=== PATIENT | male | born 1935 | race Caucasian/White ===

== ENCOUNTER 2017-11-19 13:55 | Inpatient (IN) | payer MEDICARE, BC ==
[~2017-11-19] VITALS: Ht 180.3 cm; Wt 66.8 kg
--- NOTE | ~2017-11-19 | PN ---
PATIENT:LYNN CM MEDICAL RECORD: [id number] LOCATION:[facility] ADMISSION DATE: 11/19/17 PROGRESS NOTE DATE OF SERVICE: 11/22/2017 SUBJECTIVE: The patient's case was discussed with staff. He has no new complaint. OBJECTIVE: The patient is oriented to person and place only. His mood is flat. His affect is constricted. Thought processes are circumstantial. Memory, concentration, and abstraction abilities are mildly impaired and he is denying any intent to harm himself or others. ASSESSMENT: No change in diagnoses. PLAN: Current medicines have been reviewed. I am going to discontinue the p.r.n. Xanax. Overall, he is significantly better today. TRANSINT:[id number] Voice Confirmation ID: [id number] DOCUMENT ID: [id number] GRACE FATIMA MD at 1118 CC: [id number] DICTATION DATE: 11/22/17 1149 HOME SCHOOL TEACHER: 11/22/17 1342 ADM IN [place] [id number] [place] [id number]
--- NOTE | ~2017-11-19 | PN ---
PATIENT:LYNN CM MEDICAL RECORD: [id number] LOCATION:[facility] ADMISSION DATE: 11/19/17 PROGRESS NOTE DATE OF SERVICE: 11/30/2017 SUBJECTIVE: The patient's case was discussed with staff. He has no new complaint. OBJECTIVE: The patient has intermittent behaviors and is agitated at those times. There does not seem to be a pattern tying the agitated behavior to a low O2 concentration. His oxygen saturation was 96 earlier this morning when he was angry. There have been times when he has been confused and angry and it has been abnormally low. ASSESSMENT: No change in diagnoses. PLAN: The patient is not showing any significant improvement. He continues to be irritable. I am going to give the current medicines that he is on another day or two to see if they will have any beneficial effect. I am concerned about aggressively increasing the medicines and overmedicating him. TRANSINT:[id number] Voice Confirmation ID: [id number] DOCUMENT ID: [id number] GRACE FATIMA MD at 1059 CC: [id number] DICTATION DATE: 11/30/17 1053 MOUNT LOADER: 11/30/17 [address] [facility] [address] [place] [address]
--- NOTE | ~2017-11-19 | PN ---
PATIENT:LYNN CM MEDICAL RECORD: [id number] LOCATION:[facility] ADMISSION DATE: 11/19/17 PROGRESS NOTE DATE OF SERVICE: 11/21/2017 SUBJECTIVE: The patient's case was discussed with staff. He has no new complaint. OBJECTIVE: The patient is oriented to person only. He denies intent to harm himself or others. He has been more pleasant than he has previously been. ASSESSMENT: No change in diagnoses. PLAN: The patient takes Celexa for its antidepressant effect. I am not sure he needs an antidepressant, but I do not think the risk, benefit profile for Celexa is in his best interest and I am going to discontinue it. His long-term prognosis is guarded. He will be monitored for clinical changes associated with discontinuing the medicine. TRANSINT:[id number] Voice Confirmation ID: [id number] DOCUMENT ID: [id number] GRACE FATIMA MD at 1129 CC: [id number] DICTATION DATE: 11/21/17 1419 REPORTING ANALYST: 11/21/17 1425 ADM IN [facility] [address] [place] [address]
--- NOTE | ~2017-11-19 | PN ---
PATIENT:LYNN CM MEDICAL RECORD: [id number] LOCATION:[facility] ADMISSION DATE: 11/19/17 PROGRESS NOTE DATE OF SERVICE: 11/25/2017 SUBJECTIVE: The patient's case was discussed with staff. He has no new complaint. OBJECTIVE: The patient exhibits a fair amount of sundowning behavior where he will become often quite emotionally labile and will even begin crying. He is denying that he is depressed, but individually he will endorse a lot of neurovegetative depressive symptoms. ASSESSMENT: No change in diagnoses. PLAN: The patient has been taking Effexor for its antidepressant effect. The dose will be increased today. His long-term prognosis is guarded. The plan will be for him to return to the [facility] in [place] when his treatment here is completed. TRANSINT:[id number] Voice Confirmation ID: [id number] DOCUMENT ID: [id number] GRACE FATIMA MD at 1301 CC: [id number] DICTATION DATE: 11/25/17 1445 CILNICAL SCIENTIST: 11/25/17 1508 ADM IN [place] [address] [place] [address]
--- NOTE | ~2017-11-19 | PN ---
PATIENT:LYNN CM MEDICAL RECORD: [id number] LOCATION:[facility] ADMISSION DATE: 11/19/17 PROGRESS NOTE DATE OF SERVICE: 12/04/2017 SUBJECTIVE: The patient's case was discussed with staff. He has no new complaint. OBJECTIVE: The patient has not been aggressive today. He was p.r.n.'d yesterday and still seems a little bit sedated from that. ASSESSMENT: No change in diagnoses. PLAN: I am going to continue the patient's scheduled medicines and I am hopeful that they have had an opportunity to build up a little. If his behaviors are good over the next few days and he does not require p.r.n. medicines, I will consider sending him back to the long term in [place]. TRANSINT:[id number] Voice Confirmation ID: [id number] DOCUMENT ID: [id number] GRCAE FATIMA MD at 1222 CC: [id number] DICTATION DATE: 12/04/17 1248 MANUFACTURING PROJECT ENGINEER: 12/04/17 1254 DIS IN 12/05/17 [facility] [address] [place] [address]
--- NOTE | ~2017-11-19 | PN ---
PATIENT:LYNN CM MEDICAL RECORD: [id number] LOCATION:[facility] ADMISSION DATE: 11/19/17 PROGRESS NOTE DATE OF SERVICE: 11/23/2017 SUBJECTIVE: The patient's case was discussed with staff. He has no new complaint. OBJECTIVE: The patient is in good behavioral control with limited insight about his condition. He generally tolerates his medicines well. ASSESSMENT: No change in diagnoses. PLAN: Brief supportive and educational interventions were made. Long-term prognosis is guarded. TRANSINT:[id number] Voice Confirmation ID: [id number] DOCUMENT ID: [id number] GRACE FATIMA MD at 1459 CC: [id number] DICTATION DATE: 11/23/17 1139 BINDER STRIPPER HAND: 11/23/17 1619 ADM IN [place] [id number] [place] [address]
--- NOTE | ~2017-11-19 | PN ---
PATIENT:LYNN CM MEDICAL RECORD: [id number] LOCATION:[facility] ADMISSION DATE: 11/19/17 PROGRESS NOTE DATE OF SERVICE: 12/01/2017 SUBJECTIVE: The patient's case was discussed with staff. He has no new complaint. OBJECTIVE: The patient denies intent to harm himself or others. He has been somewhat irritable at times. ASSESSMENT: No change in diagnoses. PLAN: Supportive and educational interventions were made. Long-term prognosis is guarded. TRANSINT:[id number] Voice Confirmation ID: [id number] DOCUMENT ID: [id number] GRACE FATIMA MD at 1406 CC: [id number] DICTATION DATE: 12/01/17 1118 METALLURGICAL INSPECTOR: 12/01/17 1312 ADM IN [place] [address] [place] [address]
--- NOTE | ~2017-11-19 | DS ---
PATIENT:LYNN CM :37 MEDICAL RECORD: [id number] DISCHARGE SUMMARY ADMISSION DATE: 11/19/17 DISCHARGE DATE: 12/05/17 IDENTIFYING DATA: The patient is 82 years old and he was admitted to the hospital on a voluntary basis. The patient lives in a fpc in [place], [place], and had recently become agitated and disruptive. He had been yelling and turned over a table and they felt he was unmanageable. The staff there had tried various pharmacologic and nonpharmacologic interventions with little or no success. The patient is severely impaired cognitively. HOSPITAL COURSE: The patient was actually known to me from previous hospitalizations at another hospital. He has an advanced dementia and he was treated with memory enhancing and mood stabilizing medications with some success. It is unrealistic to think that he will never have a behavior outburst, but on the whole he was significantly better. He was then subsequently transitioned back to the fpc and at that time was not felt to be an acute danger to himself or others. DISCHARGE DIAGNOSES: AXIS I: Senile dementia of the Alzheimer's type with behavioral disturbances. AXIS II: None. AXIS III: Coronary artery disease and chronic obstructive pulmonary disease. AXIS IV: Moderate stressors. AXIS V: Global assessment of functioning is 35. PLAN: At the time of discharge, the patient was in good behavioral control with limited insight about his condition. He was tolerating his medicines well. His long-term prognosis is guarded and followup is to be with his primary care fpc physician. TRANSINT:[id number] Voice Confirmation ID: [id number] DOCUMENT ID: [id number] GRACE FATIMA MD at 1213 CC: [id number] DICTATION DATE: 12/12/17 1439 COLLECTION MANAGER: 12/12/17 1452 DIS IN 12/05/17 [place] [id number] [place] [address]
--- NOTE | ~2017-11-19 | PN ---
PATIENT:LYNN CM MEDICAL RECORD: [id number] LOCATION:[facility] ADMISSION DATE: 11/19/17 PROGRESS NOTE DATE OF SERVICE: 12/03/2017 SUBJECTIVE: The patient's case was discussed with staff. He has no new complaint. OBJECTIVE: The patient is in good behavioral control with limited insight about his condition. He continues to be angry and verbally abusive to the staff. ASSESSMENT: No change in diagnoses. PLAN: Current medicines and therapies have been reviewed, both will be maintained. He was started on Geodon yesterday, and I do not think it has had an opportunity to become fully effective. TRANSINT:[id number] Voice Confirmation ID: [id number] DOCUMENT ID: [id number] GRACE FATIMA MD at 1234 CC: [id number] DICTATION DATE: 12/03/17 1356 COKE OVEN MASON: 12/03/17 1413 ADM IN [place] [id number] [place] [id number]
--- NOTE | ~2017-11-19 | PN ---
PATIENT:LYNN CM MEDICAL RECORD: [id number] LOCATION:[facility] ADMISSION DATE: 11/19/17 PROGRESS NOTE DATE OF SERVICE: 11/29/2017 SUBJECTIVE: The patient's case was discussed with staff. He has no new complaint. OBJECTIVE: The patient has been quite agitated and received p.r.n. medication today. He seems more confused. He has been stripping his clothing off. ASSESSMENT: No change in diagnoses. PLAN: Supportive and educational interventions were made. The patient's medicines have been reviewed. I strongly suspect he has developed a urinary tract infection. Pending the outcome of that I am going to not add additional medicines to his regimen since the change in his behavior could easily be explained by the infection that I suspect. TRANSINT:[id number] Voice Confirmation ID: [id number] DOCUMENT ID: [id number] GRACE FATIMA MD at 1045 CC: [id number] DICTATION DATE: 11/29/17 1237 CLINICAL BUSINESS MANAGER: 11/29/17 1253 ADM IN [place] [id number] [place] [address]
--- NOTE | ~2017-11-19 | PN ---
PATIENT:LYNN CM MEDICAL RECORD: [id number] LOCATION:[facility] ADMISSION DATE: 11/19/17 PROGRESS NOTE DATE OF SERVICE: 12/02/2017 SUBJECTIVE: The patient's case was discussed with staff. He has no new complaint. OBJECTIVE: The patient denies intent to harm himself or others. He generally tolerates his medicines well. Eye contact is fair. ASSESSMENT: No change in diagnoses. PLAN: Supportive and educational interventions were made. Long-term prognosis is guarded. I am going to discontinue his Seroquel and will start him on Geodon on a scheduled basis. He is requiring almost daily doses of p.r.n. Haldol and Ativan because of his behavior. TRANSINT:[id number] Voice Confirmation ID: [id number] DOCUMENT ID: [id number] GRACE FATIMA MD at 1339 CC: [id number] DICTATION DATE: 12/02/17 1414 SYSTEMS INTEGRATION ENGINEER: 12/02/17 1422 ADM IN [place] [id number] [place] [id number]
--- NOTE | ~2017-11-19 | PN ---
PATIENT:LYNN CM MEDICAL RECORD: [id number] LOCATION:[facility] ADMISSION DATE: 11/19/17 PROGRESS NOTE DATE OF SERVICE: 11/24/2017 SUBJECTIVE: The patient's case was discussed with staff. He has no new complaint. OBJECTIVE: The patient has been fairly angry and irritable in a way that is problematic, but it has not escalated to the point where he has required p.r.n. medication for the past 24 hours. ASSESSMENT: No change in diagnoses. PLAN: The patient will be maintained on current medicines, but I am going to increase the dose of the Seroquel slightly. I am going to give him 12.5 mg of the medication at morning along with his 50 mg at bedtime. Hopefully, this will help him through the day to not be quite as irritable. I do not think that the irritability is otherwise going to improve and I think that it could easily escalate into something much more significant than what we are seeing at the halfway since nursing homes are not staffed anywhere close to as rigidly we are and the staff here have specialized behavioral health training. TRANSINT:[id number] Voice Confirmation ID: [id number] DOCUMENT ID: [id number] GRACE FATIMA MD at 1434 CC: [id number] DICTATION DATE: 11/24/17 1519 STEAMER BLOCKER: 11/24/17 1533 ADM IN [facility] [address] [place] [address]
--- NOTE | ~2017-11-19 | PN ---
PATIENT:LYNN CM MEDICAL RECORD: [id number] LOCATION:[facility] ADMISSION DATE: 11/19/17 PROGRESS NOTE DATE OF SERVICE: 11/28/2017 SUBJECTIVE: The patient's case was discussed with staff. He has no new complaint. OBJECTIVE: The patient is in good behavioral control with limited insight about his condition. He does tolerate his medicines well. ASSESSMENT: No change in diagnoses. PLAN: Supportive and educational interventions were made. Long-term prognosis is guarded. I anticipate he can be transitioned out of the hospital soon if this level of improvement is maintained. TRANSINT:[id number] Voice Confirmation ID: [id number] DOCUMENT ID: [id number] GRACE FATIMA MD at 1223 CC: [id number] DICTATION DATE: 11/28/17 1339 FLOATING OPERATOR: 11/28/17 1343 ADM IN [facility] [address] [place] [address]
--- NOTE | ~2017-11-19 | PN ---
PATIENT:LYNN CM MEDICAL RECORD: [id number] LOCATION:[facility] ADMISSION DATE: 11/19/17 PROGRESS NOTE DATE OF SERVICE: 11/26/2017 SUBJECTIVE: The patient's case was discussed with staff. He has no new complaint. OBJECTIVE: The patient is poorly oriented. He did require some p.r.n. Ativan last night for some agitation. He is sleeping a little bit better. He continues to have episodes where he becomes quite upset and angry, sometimes saying he wants to kill himself. ASSESSMENT: No change in diagnoses. PLAN: The patient's current medicines have been reviewed. I am going to start him on a low dose of Klonopin to assist with his underlying anxiety. He will be monitored for clinical changes associated with its use. His long-term prognosis is guarded. TRANSINT:[id number] Voice Confirmation ID: [id number] DOCUMENT ID: [id number] GRACE FATIMA MD at 1052 CC: [id number] DICTATION DATE: 11/26/17 1414 REAL ESTATE ACQUISITION ANALYST: 11/26/17 1421 ADM IN [facility] [address] [place] [address]
--- NOTE | ~2017-11-19 | PSY ---
PATIENT NAME:LYNN CM MEDICAL RECORD: [id number] : 37 LOCATION:[facility] ADMISSION DATE: 11/19/17 ACCOUNT: [id number] PSYCHIATRIC EVALUATION DATE OF EVALUATION: 11/20/17 IDENTIFYING DATA: The patient is 82 years old, and he was admitted to the hospital on a voluntary basis. CHIEF COMPLAINT: Agitation. HISTORY OF PRESENT ILLNESS: The patient lives in the [facility] in [place], [place]. He has recently become agitated and disruptive. He has been yelling. He turned over a table. He is unmanageable. The staff there have tried various pharmacologic and nonpharmacologic interventions with little or no success. The patient is severely impaired cognitively and has no understanding of what he has done. PAST MEDICAL HISTORY: Significant for coronary artery disease and bypass grafting. He also has a history of COPD. PAST PSYCHIATRIC HISTORY: Significant for an established diagnosis of dementia and a previous hospitalization for behavior problems associated with the dementia. FAMILY HISTORY: Unknown. ALLERGIES: No known drug allergies. CURRENT MEDICATIONS: Include Ultram, Xanax, Seroquel, Lipitor, potassium, Celexa, Protonix, Coreg, Namenda, Effexor, Lasix, and [place]. SOCIAL HISTORY: The patient has never . He has no children. 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 He now lives in a detention. He has smoked and has continued to smoke up to until this hospitalization since he was a teenager. He does not have a history of alcohol abuse. MENTAL STATUS EXAMINATION: The patient is awake, alert, and oriented to person only. His mood is anxious. His affect is constricted. Thought processes are circumstantial. Memory, concentration, and abstraction abilities are moderately impaired, and he denies any active intent to harm himself or others as well as overt psychotic symptoms. ASSETS: Supportive family members. LIABILITIES: Limited insight. DIAGNOSTIC IMPRESSION: AXIS I: Senile dementia of the Alzheimer's type with behavioral disturbances. AXIS II: None. AXIS III: Coronary artery disease and chronic obstructive pulmonary disease. AXIS IV: Moderate stressors. AXIS V: Global assessment of functioning is 30. PLAN: At the time of admission, the patient is agitated and confused. He will be treated with both memory enhancing and mood stabilizing medications. His long-term prognosis is guarded. I anticipate he can return to the detention once adequately treated, and I would estimate his length of stay to be 10 days. TRANSINT:[id number] Voice Confirmation ID: [id number] DOCUMENT ID: [id number] GRACE FATIMA MD at 1350 CC: [id number] DICTATION DATE: 11/20/17 1349 ENTERPRISE INTEGRATION ARCHITECT: 11/20/17 1409 ADM IN [place] [id number] [place] [id number]
--- NOTE | ~2017-11-19 | PN ---
PATIENT:LYNN CM MEDICAL RECORD: [id number] LOCATION:[facility] ADMISSION DATE: 11/19/17 PROGRESS NOTE DATE OF SERVICE: 11/27/2017 SUBJECTIVE: The patient's case was discussed with staff. He has no new complaint. OBJECTIVE: The patient is in good behavioral control. He has limited insight about his condition. He generally tolerates his medicines well. The episodes of agitation do appear to be related to oxygen desaturation. He has no thoughts of harming himself today. ASSESSMENT: No change in diagnoses. PLAN: Brief supportive and educational interventions were made. Long-term prognosis is guarded. TRANSINT:[id number] Voice Confirmation ID: [id number] DOCUMENT ID: [id number] GRACE FATIMA MD at 1322 CC: [id number] DICTATION DATE: 11/27/17 1159 RATTAN WORKER: 11/27/17 1206 ADM IN [place] [id number] [place] [address]
[2017-11-19 15:55] VITALS: BP 100/58
[2017-11-19] MEDS ORDERED: XANAX0.25 MG PO (16:37)
[2017-11-19] MEDS ORDERED: CELEXA20 MG PO (16:39)
[2017-11-19] MEDS ORDERED: LIPITOR40 MG PO (16:39)
[2017-11-19] MEDS ORDERED: COREG 3.1253.125 MG PO (16:40)
[2017-11-19] MEDS ORDERED: EFFEXOR50 MG PO (16:40)
[2017-11-19] MEDS ORDERED: FUROSEMIDE20 MG PO (16:41)
[2017-11-19] MEDS ORDERED: NAMENDA5 MG PO (16:41)
[2017-11-19] MEDS ORDERED: HYDROCODON-ACE1 EAC7 PO (16:41)
[2017-11-19] MEDS ORDERED: PROTONIX40 MG PO (16:42)
[2017-11-19] MEDS ORDERED: K-TAB10 MEQ PO (16:42)
[2017-11-19 16:43] VITALS: BP 100/58
[2017-11-19] MEDS ORDERED: SEROQUEL25 MG PO (16:43)
[2017-11-19] MEDS ORDERED: ULTRAM50 MG PO (16:44)
[2017-11-19 20:55] VITALS: BP 115/74
[2017-11-20 08:27] LABS: BASOPHILS 0.4 % (0-2); EOSINOPHILS 7.4 % (0-7); HEMATOCRIT 33.4 % (42.0-54.0); HEMOGLOBIN 10.6 g/dL (13.5-17.5); IMMATURE GRANULOCYTES 0.4 % (0-5); LYMPHOCYTES 22.5 % (15-50); MCH 28.3 pg (26.0-34.0); MCHC 31.7 g/dL (31.0-37.0); MCV 89.1 fL (80.0-100.0); MEAN PLATELET VOLUME 8.8 fL (7.4-10.4); MONOCYTES 8.5 % (2-11); NEUTROPHILS 60.8 % (40-80); PLATELET COUNT 182 10x3/uL (130-400); RBC 3.75 10x6/uL (4.20-6.10); RDW 14.4 % (11.5-14.5); WBC 5.6 10x3/uL (4.8-10.8)
[2017-11-20 08:52] LABS: ALBUMIN 3.1 g/dL (3.4-5.0); ANION GAP 8.9 mmol/L (8-16); BILIRUBIN - TOTAL 0.26 mg/dL (0.2-1.3); CALCIUM 8.8 mg/dL (8.5-10.1); CARBON DIOXIDE 30.2 mmol/L (21.0-32.0); CHOL - HDL RATIO 3.6 ratio (2.3-4.9); CREATININE - SERUM 1.4 mg/dL (0.6-1.3); POTASSIUM - SERUM 4.1 mmol/L (3.5-5.1); PROTEIN - SERUM 8.2 g/dL (6.4-8.2); THYROID STIMULATING HORMONE 3.41 uIU/mL (0.36-3.74)
[2017-11-20 09:36] VITALS: Ht 180.3 cm; Wt 66.8 kg
[2017-11-20 11:03] VITALS: BP 120/56; BP 120/66
[2017-11-20 20:05] VITALS: BP 112/58
[2017-11-21 05:15] LABS: VITAMIN D 25 HYDROXY 10.7 ng/mL (30.0-100.0)
[2017-11-21 07:33] LABS: RAPID PLASMA REAGIN Non Reactive (Non Reactive)
[2017-11-21 09:20] LABS: FOLATE (FOLIC ACID) - SERUM 7.1 ng/mL (>3.0)
[2017-11-21 10:31] VITALS: BP 114/61
[2017-11-21 20:35] VITALS: BP 107/65
[2017-11-22 09:37] VITALS: BP 115/63
[2017-11-22 13:11] LABS: APPEARANCE CLEAR (CLEAR); COLOR YELLOW (YELLOW)
[2017-11-22 13:12] LABS: AMORPHOUS SEDIMENT >1+ /lpf (NONE SEEN); BACTERIA MANY /hpf (NONE SEEN); BILIRUBIN NEGATIVE (NEGATIVE); EPITHELIAL CELLS 0-5 /hpf (0-5); GLUCOSE NEGATIVE (NEGATIVE); KETONE NEGATIVE (NEGATIVE); MUCUS <1+ /lpf (NONE SEEN); NITRITE NEGATIVE (NEGATIVE); PROTEIN NEGATIVE (NEGATIVE); RED CELLS - URINE OCC /hpf (0-5); SPECIFIC GRAVITY 1.015 (1.005-1.020); UROBILINOGEN NORMAL (NORMAL)
[2017-11-22 19:21] VITALS: BP 118/60
[2017-11-23 08:00] VITALS: BP 105/55
[2017-11-23 17:11] VITALS: BP 118/62
[2017-11-23 19:25] VITALS: BP 104/55
[2017-11-24 08:15] VITALS: BP 100/54
[2017-11-24 16:24] VITALS: BP 115/66
[2017-11-24 19:34] VITALS: BP 103/58
[2017-11-25 07:55] VITALS: BP 113/68
[2017-11-25 21:57] VITALS: BP 108/60
[2017-11-26 01:53] LABS: APPEARANCE CLOUDY (CLEAR); COLOR YELLOW (YELLOW)
[2017-11-26 01:54] LABS: BILIRUBIN NEGATIVE (NEGATIVE); GLUCOSE NEGATIVE (NEGATIVE); KETONE NEGATIVE (NEGATIVE); NITRITE POSITIVE (NEGATIVE); PROTEIN 1+ mg/dL (NEGATIVE); SPECIFIC GRAVITY 1.005 (1.005-1.020); UROBILINOGEN NORMAL (NORMAL)
[2017-11-26 01:55] LABS: BACTERIA MANY /hpf (NONE SEEN); EPITHELIAL CELLS 0-5 /hpf (0-5)
[2017-11-26 09:00] VITALS: BP 132/68
[2017-11-26 19:06] VITALS: BP 125/65
[2017-11-27 10:35] VITALS: BP 118/68
[2017-11-27 22:38] VITALS: BP 134/70
[2017-11-28 10:25] VITALS: BP 100/60
[2017-11-28 21:17] VITALS: BP 121/55
[2017-11-29 10:01] VITALS: BP 126/65
[2017-11-29 10:13] VITALS: BP 126/65
[2017-11-29 21:12] VITALS: BP 150/59
[2017-11-30 09:29] VITALS: BP 117/59
[2017-11-30 19:27] VITALS: BP 130/72
[2017-12-01 08:00] VITALS: BP 93/34
[2017-12-01 19:17] VITALS: BP 113/78
[2017-12-02 08:00] VITALS: BP 119/80
[2017-12-02 20:15] VITALS: BP 142/76
[2017-12-03 08:00] VITALS: BP 133/77
[2017-12-03 10:53] VITALS: BP 159/72
[2017-12-03 19:53] VITALS: BP 142/80
[2017-12-04 11:17] VITALS: BP 100/57
[2017-12-04 22:29] VITALS: BP 130/80
[2017-12-05] MEDS ORDERED: IPRAT-ALBUT 0.5-3 ML INH (09:49)
[2017-12-05] MEDS ORDERED: ASPIRIN81 MG PO (09:50)
[2017-12-05] MEDS ORDERED: EFFEXOR37.5 MG PO (09:50)
[2017-12-05] MEDS ORDERED: GEODON20 MG PO (09:51)
[2017-12-05] MEDS ORDERED: KLONOPIN0.5 MG PO (09:51)
[2017-12-05] MEDS ORDERED: FLORAJEN3 CAPS460 MG PO (09:52)
[2017-12-05] MEDS ORDERED: SENOKOT-S TABLE1 TAB PO (09:52)
[2017-12-05] MEDS ORDERED: LIDODERM 5 %1 PATCH TRANSDERM (09:52)
[2017-12-05 11:19] VITALS: BP 127/72
== END 2017-12-05 09:55 | DRG 57 ==
LOC: D.PSYCH 13:55
PROVIDERS: Family Medicine; Psychiatry & Neurology Psychiatry
DX: G30.1 Alzheimer's disease with late onset (principal); F02.81 Dementia in other diseases classified elsewhere, unspecified severity, with behavioral disturbance; N39.0 Urinary tract infection, site not specified; I25.10 Atherosclerotic heart disease of native coronary artery without angina pectoris; J44.9 Chronic obstructive pulmonary disease, unspecified; I10 Essential (primary) hypertension; Z74.09 Other reduced mobility; F41.8 Other specified anxiety disorders; E78.5 Hyperlipidemia, unspecified; K21.9 Gastro-esophageal reflux disease without esophagitis; B96.4 Proteus (mirabilis) (morganii) as the cause of diseases classified elsewhere

== ENCOUNTER 2019-06-01 20:56 | Inpatient (IN) | payer MEDICARE, BC ==
[~2019-06-01] VITALS: Ht 180.3 cm; Wt 56.1 kg
[~2019-06-01 20:56] MED LIST: ASPIRIN81 MG PO; CELEXA20 MG PO; COREG 3.1253.125 MG PO; EFFEXOR37.5 MG PO; EFFEXOR50 MG PO; FLORAJEN3 CAPS460 MG PO; FUROSEMIDE20 MG PO; GEODON20 MG PO; HYDROCODON-ACE1 EAC7 PO; IPRAT-ALBUT 0.5-3 ML INH; K-TAB10 MEQ PO; KLONOPIN0.5 MG PO; LIDODERM 5 %1 PATCH TRANSDERM; LIPITOR40 MG PO; NAMENDA5 MG PO; PROTONIX40 MG PO; SENOKOT-S TABLE1 TAB PO; SEROQUEL25 MG PO; ULTRAM50 MG PO; XANAX0.25 MG PO
--- NOTE | 2019-06-01 21:10 | NUR ---
PT ARRIVED TO UNIT VIA EMS. HE IS YELLING OUT BUT IS COOPERATIVE WITH STAFF. HE IS VERY CONFUSED STATING HE WANTS TO TALK TO A DR. STATES "JUSTIN BEEN BITTEN BY DOGS AND AM BLEEDING OUT" CHECKED ALL OVER FOR BITE JAMES. NONE FOUND REDIRECTED. HE IS A FULL CODE AND HIS CODE WORD IS 6347. HE IS UNABLE TO AMBULATE. HE HAS B/L HEEL PADS. WILL CONTINUE TO MONITOR.
--- NOTE | 2019-06-01 21:30 | NUR ---
VERBAL CONSENT FROM DAUGHTER/POA MARISA KIRBY. VERIFIED WITH JENNIFER LYONS RN.
[2019-06-01] MEDS ORDERED: FLORANEX / LACT1 TAB PO (21:53)
[2019-06-01] MEDS ORDERED: BAYER CHEWABLE81 MG PO (21:54)
[2019-06-01] MEDS ORDERED: LIPITOR40 MG PO (21:57)
[2019-06-01] MEDS ORDERED: KLONOPIN0.5 MG PO (22:58)
[2019-06-01] MEDS ORDERED: FOLIC ACID1 MG PO (22:59)
[2019-06-01] MEDS ORDERED: FERROUS SULFAT325 MG PO (22:59)
[2019-06-01] MEDS ORDERED: MELATONIN 3 MG1 TAB PO (23:00)
[2019-06-01] MEDS ORDERED: POTASSIUM CHLOR8 ME1 PO (23:01)
[2019-06-01] MEDS ORDERED: NAMENDA10 MG PO (23:02)
[2019-06-01] MEDS ORDERED: MULTI-DAY VITAM1 TAB PO (23:02)
[2019-06-01] MEDS ORDERED: FAMOTIDINE10 MG PO (23:03)
[2019-06-01] MEDS ORDERED: VITAMIN B-12500 MCG PO (23:04)
[2019-06-01] MEDS ORDERED: ASCORBIC ACID500 MG PO (23:04)
[2019-06-01] MEDS ORDERED: COREG 3.1253.125 MG PO (23:09)
[2019-06-01] MEDS ORDERED: VITAMIN D10000 UNI1 PO (23:09)
[2019-06-01] MEDS ORDERED: SENNA LAXATIVE8.6 MG PO (23:11)
[2019-06-01] MEDS ORDERED: NORCO-7.51 TAB PO (23:12)
[2019-06-01] MEDS ORDERED: MIDODRINE HCL10 MG PO (23:13)
[2019-06-01] MEDS ORDERED: IMODIUM2 MG PO (23:14)
[2019-06-01] MEDS ORDERED: ULTRAM50 MG PO (23:15)
[2019-06-01] MEDS ORDERED: ACETAMINOPHEN325 MG PO (23:16)
[2019-06-01] MEDS ORDERED: ZOFRAN8 MG PO (23:17)
[2019-06-02 00:56] VITALS: BP 122/78
[2019-06-02 07:00] VITALS: BP 122/78; BMI 17.8
[2019-06-02 08:52] LABS: BASOPHILS 0.3 % (0-2); EOSINOPHILS 2.3 % (0-7); HEMATOCRIT 28.5 % (42.0-54.0); HEMOGLOBIN 8.5 g/dL (13.5-17.5); IMMATURE GRANULOCYTES 0.2 % (0-5); LYMPHOCYTES 23.5 % (15-50); MCHC 29.8 g/dL (31.0-37.0); MCV 90.5 fL (80.0-100.0); MEAN PLATELET VOLUME 9.8 fL (7.4-10.4); MONOCYTES 8.9 % (2-11); NEUTROPHILS 64.8 % (40-80); RBC 3.15 10x6/uL (4.20-6.10); RDW 15.1 % (11.5-14.5); WBC 5.7 10x3/uL (4.8-10.8)
[2019-06-02 09:25] LABS: PLATELET COUNT 325 10x3/uL (130-400)
[2019-06-02 09:27] LABS: ALBUMIN 2.5 g/dL (3.4-5.0); ALKALINE PHOSPHATASE 54 U/L (30-120); ALT (SGPT) 24 U/L (10-68); BILIRUBIN - TOTAL 0.26 mg/dL (0.2-1.3); CALC OSMOLALITY 278 mosm/kg (275-300); CALCIUM 8.8 mg/dL (8.5-10.1); CARBON DIOXIDE 29.4 mmol/L (21.0-32.0); CHLORIDE - SERUM 102 mmol/L (98-107); GLUCOSE 114 mg/dL (74-106); HDL CHOLESTEROL 34 mg/dL (32-96); POTASSIUM - SERUM 4.1 mmol/L (3.5-5.1); SODIUM 137 mmol/L (136-145); THYROID STIMULATING HORMONE 2.97 uIU/mL (0.36-3.74); TRIGLYCERIDE 105 mg/dL (30-200); UREA NITROGEN 25 mg/dL (7-18); eGFR NON AFRICAN AMERICAN 76 mL/min (90-120)
[2019-06-02 09:55] LABS: CHOL - HDL RATIO 2.9 ratio (2.3-4.9); CHOLESTEROL, TOTAL 99 mg/dL (0-200); LDL CHOLESTEROL 44 mg/dL (0-100); LDL-HDL RATIO 1.3 ratio (1.5-3.5)
[2019-06-02 10:31] VITALS: Ht 180.3 cm; Wt 56.1 kg
[2019-06-02 10:33] VITALS: BP 100/58
--- NOTE | 2019-06-02 12:39 | NUR ---
RECEIVED IN HALLWAY OUTSIDE OF NURSES STATION. CALM AND COOPERATIVE WITH CARE AND ASSESSMENT. YELLING OUT AT TIMES. DEMANDING TO LEAVE AT TIMES. REDIRECT AND REORIENT NEEDED. EATING LUNCH AT THIS TIME. CONTINUE PLAN OF CARE.
--- NOTE | 2019-06-02 13:00 | NUR ---
PATIENT SEXUALLY INAPPROPRIATE WITH STAFF. MAKING INAPPROPRIATE COMMENTS AND GRABBING STAFF INAPPROPRIATELY. REDIRECTED.
--- NOTE | 2019-06-02 14:20 | NUR ---
YELLING OUT,DEMANDING.WILL NOT REDIRECT.HALDOL 2MG AND ATIVAN 0.5MG IM TO RT LATERAL THIGH.
--- NOTE | 2019-06-02 14:50 | NUR ---
GOOD RESPONSE TO ATIVAN AND HALDOL.EYES CLOSED,RESP REGULAR AND EVEN.
--- NOTE | 2019-06-02 16:22 | NUR ---
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 The wound bed is red, bone can be tapped and muscle noted. Wound edges are rolled. There is no odor noted - there is a moderate serous drainage. There is a stage 3 pressure injury on right hip measuring 1cm x 1cm. The wound bed is yellow/slough. Small amount of serous drainage is noted with no odor. Recommended: wet to dry dressing using saline to coccyx (changing daily) -mepilex border dressing to right hip -air overlay mattress -turn/reposition q 2 hours while in bed q 1 hour repositioning while up in chair Wound care will monitor.
--- NOTE | 2019-06-02 19:30 | NUR ---
DRESSING CHANGE COMPLETE ON STAGE 4 COCCYX PRESSURE ULCER PER INSTRUCTIONS. PT TOLERATED WELL.
[2019-06-02 21:00] VITALS: BP 102/57
--- NOTE | 2019-06-02 21:01 | NUR ---
B.) PT IS ALERT AND ORIENTED TO SELF ONLY. HE IS UNABLE TO AMBULATE OR MAKE HIS NEEDS KNOWN. HE IS SEXUALLY INAPPROPRIATELY GROPING STAFF, RECITING RACIAL SLURRS, AND YELLING OUT. HE IS ON 2L O2. I.) PROVIDED PM MEDICATONS. COLLECTED URINE SAMPLE. EKG. AND REDIRECT OFTEN. R.) COMPLIANT WITH ALL MEDICATIONS, UNABLE TO COLLECT URINE SAMPLE DUE TO ENLARGED PROSTATE. COMPLIANT WITH EKG. DIFFICULT TO REDIRECT. P.) WILL CONTINUE TO MONITOR.
--- NOTE | 2019-06-03 01:36 | NUR ---
PT YELLING OUT AND BEING SEXUALLY INAPPROPRIATE WITH FEMALE STAFF. PRN 0.5MG ATIVAN ADMINISTERED IM TO RIGHT VASTUS LATERALIS. WILL CONTINUE TO MONITOR.
--- NOTE | 2019-06-03 09:05 | NUR ---
RECEIVED IN HALLWAY OUTSIDE OF NURSES STATION. AGITATED AND UNCOOPERATIVE WITH CARE. AGGRESSIVE WITH STAFF. SEXUALLY INAPPROPRIATE. REDIRECT AND REORIENT NEEDED. EATING BREAKFAST AT THIS TIME. CONTINUE PLAN OF CARE.
--- NOTE | 2019-06-03 10:27 | NUR ---
Nutrition Follow-up: Diet: Regular + Ensure TID + Igor BID PO intake: 68% average x 3 meals Last BM: 06/03/19. WT: 127.8# (06/02/19) Meds noted: senokot. Labs reviewed. Skin: stage IV decub on coccyx Recommend continue current diet. Continue oral nutrition supplements. Encourage PO intake. RD following.
--- NOTE | 2019-06-03 11:36 | NUR ---
This nurse and other nurse bladder scanned patient. 157 ml noted in bladder. will cont to monitor.
--- NOTE | 2019-06-03 16:47 | HP ---
PATIENT: ADAIR MC MEDICAL RECORD: [id number] ACCOUNT: [id number] LOCATION:[facility] : 36 ADMISSION DATE: 06/01/19 PCP: LASHAE DHILLON MD HISTORY AND PHYSICAL EXAMINATION IDENTIFYING DATA: The patient is 84 years old and he is admitted to the hospital on a voluntary basis. CHIEF COMPLAINT: Confusion and agitation. HISTORY OF PRESENT ILLNESS: The patient is referred to us from a local [facility]ci. He told the nurse that the fci that he was going to get a gun and shoot himself, but when asked about this, he laughs and says that never happened. Apparently, he has been difficult to manage there. He has not been eating or drinking and refusing some medicines. He has also had some mood swings and some sexually inappropriate behavior. He is clearly very impaired cognitively. Unfortunately, he was sexually inappropriate with some of the nursing staff earlier today. PAST MEDICAL HISTORY: Significant for coronary artery disease with coronary artery bypass grafting. He has a history of hypertension and COPD. He has a history of acid reflux and anorexia. He has a history of osteoarthritis. PAST PSYCHIATRIC HISTORY: Significant for an established diagnosis of dementia and a hospitalization at this facility in October of 2017. At that time, he was under my care and was referred to us from a fci in [place], [place], where he had been agitated and disruptive. FAMILY HISTORY: Unknown. ALLERGIES: No known drug allergies. CURRENT MEDICATIONS: Include, aspirin, Effexor, Geodon, Klonopin. SOCIAL HISTORY: The patient is never . He has no children. 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 He now lives in a fci. He has smoked in the past and continued to smoke up until recently. He does not have a history of alcohol abuse. MENTAL STATUS EXAMINATION: The patient is awake, alert and oriented to person only. His mood is flat. His affect is constricted. Thought processes are disorganized. Memory, concentration, and abstraction abilities are severely impaired. He denies that he would seek to harm himself or others as well as psychotic symptoms. ASSETS: Supportive family members. LIABILITIES: Limited insight. DIAGNOSTIC IMPRESSION: AXIS I: Major neurocognitive disorder of the Alzheimer's type with behavioral disturbances. AXIS II: None. AXIS III: Coronary artery disease, chronic obstructive pulmonary disease, and HISTORY AND PHYSICAL [id number] ADAIR CM hypertension. AXIS IV: Moderate. AXIS V: Global assessment of functioning is 25. PLAN: At this time, the patient is admitted to the hospital for a comprehensive medical, psychological, and social evaluation. He will be treated with both mood stabilizing and memory enhancing medications. His long-term prognosis is guarded. TRANSINT:[id number] Voice Confirmation ID: [id number] DOCUMENT ID: [id number] GRACE FATIMA MD at 1647 CC: [id number] DICTATION DATE: 06/02/19 1554 FITTER UP: 06/02/19 1612 ADM IN [place] [id number] [place] [address]
--- NOTE | 2019-06-03 18:39 | NUR ---
PATIENT WAS RESTLESS, YELLING AT OTHER PTS, AGITATING OTHER MEN BY YELLING OBSCENES AT PTS. ATTEMPTED TO REDIRECT BEHAVIOR. SEVERAL STAFF MEMBERS UNABLE TO REDIRECT BEHAVIOR. ATIVAN 0.[address] FATIMA ORDER. PT TOELRATED WELL WHILE SCREAMING AT NURSE "I'LL KILL YOU NOW. YOU STICK ME AND I WILL KILL YOU." WILL REASSESS Q 1 HOUR FOR EFFECTIVENESS.
[2019-06-03 20:00] VITALS: BP 117/62
--- NOTE | 2019-06-03 20:43 | NUR ---
B.) PT IS ALERT AND ORIENTED TO SELF ONLY. HE HAS POOR INSIGHT INTO HIS SITUATION HE IS RECEIVED IN THE DAYROOM IN A GERICHAIR. HE IS YELLING OUT. HE IS UNABLE TO AMBULATE OR MAKE HIS NEEDS KNOWN. I.) PROVIDED PM MEDICATIONS PRESCRIBED. REDIRECT OFTEN. R.) COMPLIANT WITH ALL MEDICATIONS. DIFFICULT TO REDIRECT. P.) WILL CONTINUE TO MONITOR.
--- NOTE | 2019-06-04 09:10 | NUR ---
PATIENT SITTING IN CHAIR WITH EYES OPEN. YELLING OUT FOR "MONIE" ATTEMPTED TO REDIRECT PT. PT IS ALERT TO SELF ONLY CONFUSION NOTED. REDIRECT AND REORIENT IF NEEDED. PT HAS PRESSURE WOUNDS. BANDAGES CHANGED ON PREVIOUS SHIFT. PT IS COMPLIANT WITH MEDS, VITALS AND ASSESSMENTS. CHAIR ALARM IN PLACE AND ACTIVE. WILL CONT PLAN OF CARE.
[2019-06-04 10:32] VITALS: BP 104/56
[2019-06-04 10:45] LABS: RAPID PLASMA REAGIN Non Reactive (Non Reactive)
--- NOTE | 2019-06-04 12:03 | NUR ---
THIS NURSE CHANGED DRESSING TO COCCYX AREA. THIS NURSE AND TECH PUT LIFT SHEET UNDER PT TO ASSIST WITH REPOSITIONING. CHAIR ALARM IN PLACE AND ACTIVE.
--- NOTE | 2019-06-04 18:10 | NUR ---
PATIENT WAS SEXUALLY INAPPROPRIATE WITH A STAFF MEMBER. REDIRECTED AND MOVED.
[2019-06-04 20:00] VITALS: BP 122/66
--- NOTE | 2019-06-04 21:17 | NUR ---
B)RECEIVED PATIENT SITTING IN THE DAYROOM. RESTLESS AND TALKING TO SELF NON STOP. CONFUSED AND DISORIENTED. O2 AT 2L/MIN PER NC. DRESSINGS TO COCCYX AND RIGHT TROCHANTER INTACT. I)ADMINISTER MEDS AND MONITOR COMPLIANCE. REORIENT NEEDED. R)MED COMPLIANT. POOR REORIENTATION DUE TO IMPAIRED ABILITY TO COMPREHEND, PROCESS AND RETAIN INFORMATION. P)CONTINUE POC AND PROVIDE SAFE ENVIRONMENT.
[2019-06-05 10:30] VITALS: BP 111/68
--- NOTE | 2019-06-05 10:32 | NUR ---
The patient is awake and alert, he is confused. He remains sleepy. He awakened to eat and he awakened to yell out that he is cold and needed a blanket. He has poor insight into her situation. He knows his name. Provide prescribed meds. Provided his breakfast and a snack, and a blanket. He is compliant with meds. Continue POC.
--- NOTE | 2019-06-05 12:30 | NUR ---
THIS NURSE AND OTHER NURSE WERE PERFORMING PERICARE ON PT AND REPOSITIONING. PT SCRACHED THIS NURSE ON THE FACE, GRABBED AHOLD OF HER HAIR. 2X STAFF MEMBERS ASSISTED WITH RELEASING NURSE HAIR FROM GLASS BELT SANDER. PT CONT TO BE COMBATIVE WITH CARE. ATIVAN 0.[address] FATIMA ORDER. WILL REASSESS FOR EFFECTIVENESS.
--- NOTE | 2019-06-05 13:30 | NUR ---
PT CONTS TO BE HYPER-VERBAL WITH NO BEHAVIORS NOTED. WILL CONT PLAN OF CARE. CHAIR ALARM IN PLACE AND ACTIVE.
[2019-06-05 20:00] VITALS: BP 128/71
--- NOTE | 2019-06-05 21:49 | NUR ---
PATIENT ANXIOUS AND YELLING OUT. PRN HALDOL AND ATIVAN IM ADMINISTERED PER ORDERS.
--- NOTE | 2019-06-06 00:53 | NUR ---
B)PATIENT SITTING IN A CHAIR IN THE DAYROOM. CONFUSED AND DISORIENTED. HYPERTALKATIVE HOWEVER DOES NOT FOLLOW TOPIC OF CONVERSATION. I)ADMINISTER MEDS AND MONITOR COMPLIANCE. REORIENT NEEDED. R)MED COMPLIANT. POOR REORIENTATION DUE TO IMPAIRED ABILITY TO RETAIN INFORMATION. P)CONTINUE POC AND PROVIDE SAFE ENVIRONMENT.
--- NOTE | 2019-06-06 08:00 | NUR ---
REC'D PT SITTING IN CHAIR. NO ACUTE DISTRESS NOTED. PT IS CONFUSED AND ALERT TO SELF ONLY. PT IS ON A OVERLAY MATTRESS, CRATE IN HIS KELLY-CHAIR, HEEL PROTECTERS IN PLACE TO PREVENT FURTHER BREAKDOWN. PT HAS A PRESSURE SORES TO HIP AND COCCYX. PT CONTS TO BE HYPERVERBAL YELLING OUT AT TIMES, DOES NOT UNDERSTAND INSTRUCTIONS WHEN STAFF ATTEMPTS TO ASSIST. REDIRECT AND REORIENT NEEDED. PT COMPLIANT WITH MEDS, VITALS AND ASSESSMENTS. PT LACKS INSIGHT TO SITUATION DUE TO IMPAIRED ABILITIES. CHAIR ALARM IN PLACE AND ACTIVE. WILL CONT PLAN OF CARE. RESPOSITION Q 2 HOURS.
[2019-06-06 09:36] VITALS: BP 104/50
--- NOTE | 2019-06-06 12:07 | NUR ---
PT COUGHING EXCESSIVELY. DR. CAUSEY AWARE AND NEW ORDERS: ROBTUSSIN DM QID, DUONEB QID, PULMICORT BID, BMP, CBC, AND CHEST X-RAY ORDERED. WILL FOLLOW ORDERS.
[2019-06-06 12:13] LABS: BASOPHILS 0.2 % (0-2); EOSINOPHILS 3.7 % (0-7); HEMATOCRIT 31.3 % (42.0-54.0); HEMOGLOBIN 9.2 g/dL (13.5-17.5); IMMATURE GRANULOCYTES 0.3 % (0-5); LYMPHOCYTES 18.5 % (15-50); MCH 27.2 pg (26.0-34.0); MCHC 29.4 g/dL (31.0-37.0); MCV 92.6 fL (80.0-100.0); MEAN PLATELET VOLUME 9.3 fL (7.4-10.4); MONOCYTES 7.9 % (2-11); NEUTROPHILS 69.4 % (40-80); PLATELET COUNT 317 10x3/uL (130-400); RBC 3.38 10x6/uL (4.20-6.10); RDW 15.7 % (11.5-14.5); WBC 6.4 10x3/uL (4.8-10.8)
[2019-06-06 12:25] LABS: ANION GAP 12.8 mmol/L (8-16); CALCIUM 9.4 mg/dL (8.5-10.1); CARBON DIOXIDE 26.9 mmol/L (21.0-32.0); CREATININE - SERUM 1.1 mg/dL (0.6-1.3); POTASSIUM - SERUM 3.7 mmol/L (3.5-5.1)
[2019-06-06 20:00] VITALS: BP 126/90
--- NOTE | 2019-06-06 22:48 | NUR ---
RECEIVED IN HALLWAY. SITTING IN A RECLINING CHAIR WITH PEERS AT HIS SIDE. TALKING TO SELF. VERY CONFUSED. CALM AND COOPERATIVE WITH CARE AND ASSESSMENT. NO SIGNS OF SEXUALLY INAPPROPIATE BEHAVIOR. NO STATEMENTS OF SELF HARM VOICED. REDIRECT AND REORIENT NEEDED. CONTINUES TO SIT IN HALLWAY TALKING TO SELF. CONTINUE PLAN OF CARE
--- NOTE | 2019-06-07 09:20 | NUR ---
RECEIVED IN HALLWAY OUTSIDE OF NURSES STATION. RESTING IN RECLINER WITH EYES OPEN. YELLING OUT. ANXIOUS. HALLUCINATING THAT HE IS IN A BURNING BUILDING AND NEEDS TO GET OUT. REDIRECT AND REORIENT NEEDED. EATING BREAKFAST AT THIS TIME. CONTINUE PLAN OF CARE.
[2019-06-07 10:55] VITALS: BP 125/60
--- NOTE | 2019-06-07 13:37 | PN ---
PATIENT:ADAIR CM MEDICAL RECORD: [id number] LOCATION:[facility] ADMISSION DATE: 06/01/19 PROGRESS NOTE DATE OF SERVICE: 06/04/2019 SUBJECTIVE: The patient's case was discussed with staff. The patient does yell out asking for help. Suicidal thoughts, no plan nor intent or ability. OBJECTIVE: GENERAL: The patient is slightly disheveled. He is more alert, oriented to person, disoriented to place, time, or situation. His speech is random, voice is clear, but a louder tone. He has fair eye contact impaired judgment and insight. His thought and concentration, he is able to repeat phrases. His mood is depressed and anxious. His affect is flat. Memory is poor for both recent and remote events. The patient does not appear to be attending. No visual, auditory hallucination. ASSESSMENT: Dementia. PLAN: Continue to monitor the patient's medications. The patient has tolerated the first dose of Geodon, will continue to monitor to see how he tolerates his medications and keep him safe and help stabilize his mood. Dictated By: Evie Santos APN I have interviewed/examined the above patient and agree with these documented findings. TRANSINT:[id number] Voice Confirmation ID: [id number] DOCUMENT ID: [id number] GRACE FATIMA MD at 1337 at 1555 CC: [id number] DICTATION DATE: 06/04/19 1732 DISTRIBUTION CENTER ASSISTANT: 06/04/19 2312 ADM IN [facility] [address] [place] [address]
--- NOTE | 2019-06-07 13:37 | PN ---
PATIENT:ADAIR CM MEDICAL RECORD: [id number] LOCATION:[facility] ADMISSION DATE: 06/01/19 PROGRESS NOTE DATE OF SERVICE: 06/05/2019 DATE OF SERVICE: 06/05/2019 SUBJECTIVE: The patient's case was discussed with staff. The patient does continue to yell out asking for help, such as "I am cold, I am hungry." The patient is resting quietly at present in chair, in group room. OBJECTIVE: GENERAL: The patient is slightly disheveled. He is oriented to person, disoriented to place, time and situation. His speech is clear, at times loud, and short sentences. His eye contact is fair. His associations are loose. His judgment and insight are impaired. His mood is depressed, anxious and easily agitated. His affect is flat, but narrow in range. His anxiety is mild to moderate. Memory is poor for remote and recent events. His judgment and insight are poor. Impulsivity is high. ASSESSMENT: No changes. PLAN: To continue to monitor her tolerance to medications, patient, and behaviors to strive to stabilize his mood by decreasing his anxiety and his agitation. Dictated By: Evie Santos APN I have interviewed/examined the above patient and agree with these documented findings. TRANSINT:[id number] Voice Confirmation ID: [id number] DOCUMENT ID: [id number] GRACE FATIMA MD at 1337 at 1555 CC: [id number] DICTATION DATE: 06/05/19 1056 MEDIA MARKETING DIRECTOR: 06/05/19 1621 ADM IN [place] [id number] [place] [address]
--- NOTE | 2019-06-07 13:37 | PN ---
PATIENT:ADAIR CM MEDICAL RECORD: [id number] LOCATION:[facility] ADMISSION DATE: 06/01/19 PROGRESS NOTE DATE OF SERVICE: 06/03/2019 SUBJECTIVE: The patient's case was discussed with staff. He has no new complaint. OBJECTIVE: The patient has apparently lost quite a bit of weight since he was here previously. Also, he has declined significantly. He was sexually inappropriate and making some vulgar and inappropriate statements last night. He did require some p.r.n. Ativan. ASSESSMENT: Dementia. PLAN: The patient's current medicines have been reviewed. I am going to start him on a low dose of scheduled Geodon to assist with his behavior. He has not made any suicidal statements. I do not view him as serious suicide risk of any kind. TRANSINT:[id number] Voice Confirmation ID: [id number] DOCUMENT ID: [id number] GRACE FATIMA MD at 1337 CC: [id number] DICTATION DATE: 06/03/19 1705 SPEECH LANGUAGE PATHOLOGIST ASSISTANT: 06/04/19 0200 ADM IN [place] [id number] [place] [id number]
[2019-06-07 19:37] VITALS: BP 120/69
--- NOTE | 2019-06-07 22:31 | NUR ---
RECEIVED IN HALLWAY SITTING IN A RECLINER OUTSIDE OF NURSES STATION. CONFUSED. CALM AND COOPERATIVE WITH CARE AND ASSESSMENT. NO SEXUALLY INAPPROPRIATE BEHAVIOR. NO STATEMENTS OF SELF HARM MADE. REDIRECT AND REORIENT NEEDED. CONTINUES TO SIT IN RECLINER OUTSIDE OF NURSES STATION. CONTINUE PLAN OF CARE
[2019-06-08 08:56] VITALS: BP 116/66
--- NOTE | 2019-06-08 08:57 | NUR ---
RECEIVED IN HALLWAY OUTSIDE OF NURSES STATION. RESTING IN RECLINER WITH EYES OPEN. YELLING OUT. HALLUCINATING. TALKING TO UNSEEN PEOPLE. REDIRECT AND REORIENT NEEDED. EATING BREAKFAST AT THIS TIME. CONTINUE PLAN OF CARE.
--- NOTE | 2019-06-08 15:11 | PN ---
PATIENT:ADAIR CM MEDICAL RECORD: [id number] LOCATION:[facility] ADMISSION DATE: 06/01/19 PROGRESS NOTE DATE OF SERVICE: 06/05/2019 SUBJECTIVE: The patient's case was discussed with staff. The patient does continue to yell out asking for help. Does seem appeared to be irritated and agitated at some point during the day. The patient has been medicated last night with a p.r.n. dose of Ativan and Haldol. OBJECTIVE: The patient is slightly disheveled. He is oriented to person, disoriented to person, place, time and situation. His speech is clear at times loud and uses short sentences. His eye contact is fair. His associations are loose. His judgment and insight are impaired. His impulsivity is high. His mood is depressed and anxious and easily agitated. His affect is flat, but narrow in range. His anxiety is mild to moderate. Memory is poor for both recent and remote events. His judgment and insight are poor. ASSESSMENT: No changes to previous diagnosis. PLAN: We did increase his Geodon to twice a day and we will continue to monitor his tolerance to medications and his mood and strive to stabilize his mood and decrease his agitation and his anxiety. Dictated By: Evie Santos APN I have interviewed/examined the above patient and agree with these documented findings. TRANSINT:[id number] Voice Confirmation ID: [id number] DOCUMENT ID: [id number] GRACE FATIMA MD at 1511 at 1547 CC: [id number] DICTATION DATE: 06/06/19 1809 SPECIFICATION MANAGER: 06/06/19 194 ADM IN [facility] [address] [place] [address]
--- NOTE | 2019-06-08 15:11 | PN ---
PATIENT:ADAIR CM MEDICAL RECORD: [id number] LOCATION:[facility] ADMISSION DATE: 06/01/19 PROGRESS NOTE DATE OF SERVICE: 06/07/2019 SUBJECTIVE: The patient's case was discussed with staff. He is very agitated today, but has no new complaints. OBJECTIVE: The patient is only partially oriented. He is irritable with the staff and difficult to redirect. ASSESSMENT: Dementia. PLAN: The patient's Geodon was increased yesterday. He has limited insight about his situation. The increase in the Geodon has not had an opportunity to become effective. I am going to order a urinalysis and we will monitor his condition. TRANSINT:[id number] Voice Confirmation ID: [id number] DOCUMENT ID: [id number] GRACE FATIMA MD at 1511 CC: [id number] DICTATION DATE: 06/07/19 1633 SHANK RANDER: 06/08/19 0309 ADM IN [place] [id number] [place] [address]
--- NOTE | 2019-06-08 19:55 | NUR ---
RECEIVED IN DAYROOM. SITTING IN A RECLINER. HYPERVERBAL. CALM AND COOPERATIVE WITH CARE AND ASSESSMENT. NO STATEMENTS OF SELF HARM MADE. ENCOURAGE TO EXPRESS NEEDS. REDIRECT AND REORIENT NEEDED. CONTINUES TO SIT IN RECLINER. CONTINUE PLAN OF CARE
[2019-06-08 20:56] VITALS: BP 120/56
--- NOTE | 2019-06-09 09:15 | PN ---
PATIENT:ADAIR CM MEDICAL RECORD: [id number] LOCATION:[facility] ADMISSION DATE: 06/01/19 PROGRESS NOTE DATE OF SERVICE: 06/08/2019 SUBJECTIVE: The patient's case was discussed with staff. He has no new complaint. OBJECTIVE: The patient denies intent to harm himself or others. He has still been agitated at times. Unfortunately, it is not possible to get a urinalysis on him at this time. He has some blockage that makes catheterization difficult and then with his confusion he has been quite confused and is not able to give us a sample. He is also incontinent. I do not have a strong clinical suspicion of a urinary tract infection. He is not febrile. His white count is not elevated and he is not complaining of any symptoms. ASSESSMENT: Dementia. PLAN: The patient is receiving Geodon on a scheduled basis to assist with his agitation. At this point, it has not been particularly helpful. I am going to give him a low dose of Klonopin to assist with that agitation. TRANSINT:[id number] Voice Confirmation ID: [id number] DOCUMENT ID: [id number] GRACE FATIMA MD at 0915 CC: [id number] DICTATION DATE: 06/08/19 1606 WATER RESOURCES PROJECT MANAGER: 06/08/19 2220 ADM IN [place] [id number] [place] [address]
[2019-06-09 09:54] VITALS: BP 114/59
--- NOTE | 2019-06-09 14:57 | NUR ---
PT SITTING IN CHAIR WITH EYES CLOSED. NOT HYPERVERBAL TODAY. CALM AND COOPERATIVE WITH CARE THIS SHIFT. PT IS COMPLIANT WITH MEDS, VITALS AND ASSESSMENTS. PROVIDE TOTAL CARE, TURN AND REPOSITION Q 2 HOUR FOR COMFORT.PT IS CONFUSED. ALERT TO SELF ONLY. REDIRECT AND REORIENT NEEDED. NO SELF HARM STATEMENTS MADE. REDIRECT AND REORIENT NEEDED. ASSIST WITH REPOSITION NEEDED. CHAIR ALARM IN PLACE AND ACTIVE. WILL CONT PLAN OF CARE.
[2019-06-09 20:33] VITALS: BP 104/57
--- NOTE | 2019-06-09 23:25 | NUR ---
B)SITTING IN THE DAYROOM. CONFUSED AND DISORIENTED. HYPERTALKATIVE. VISUAL HALLUCINATIONS RELATING "GET THAT LIMB FOR ME CAUSE I CAN'T REACH IT." TALKING TO SELF. I)ADMINISTER MEDS AND MONITOR COMPLIANCE. REORIENT NEEDED. R)MED COMPLIANT. POOR REORIENTATION DUE TO IMPAIRED ABILITY TO COMPREHEND, PROCESS, RETAIN INFORMATION AND INABILITY TO SEPARATE REALITY FROM FANTASY. P)CONTINUE POC AND PROVIDE SAFE ENVIRONMENT.
--- NOTE | 2019-06-10 02:43 | NUR ---
Patient given Tylenol 650 mg PO for headache 6 of 10.
[2019-06-10 10:03] VITALS: BP 137/92
--- NOTE | 2019-06-10 11:18 | NUR ---
Nutrition Follow-up: Chart reviewed. Pt is followed by AUDITOR SUPERVISOR. Pt with Edentuluous. AUDITOR SUPERVISOR recommends [facility] Soft/Gound Meats and [place] Thickened Liquids. Diet was changed but oral nutrition supplements were not added back to diet with diet change. Diet: Regular [facility] Soft Ground Meats [place] Thick Liquids PO intake: ~43% average x last 9 meals Last BM: 06/09/19 x 2. WT: 123.6# (06/06/19); Admit WT: 127.8# Meds noted: herminio paez. Labs noted. 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 Will add oral nutrition supplements back to diet order. They will need to be thickened by nursing staff at meal times. With advanced stage wounds patient will benefit from oral nutrition supplements at this time. RD following.
--- NOTE | 2019-06-10 12:38 | NUR ---
The patient is awake and alert, he is pleasant. Staff is feeding him. He is confused, he knows his name, but he has no idea where he is or the time. Poor insight into his situation. provide prescribed meds. The patient is compliant with meds crushed in pudding. Continue POC.
--- NOTE | 2019-06-10 14:56 | PN ---
PATIENT:ADAIR CM MEDICAL RECORD: [id number] LOCATION:[facility] ADMISSION DATE: 06/01/19 PROGRESS NOTE DATE OF SERVICE: 06/09/2019 SUBJECTIVE: The patient's case was discussed with staff. He has no new complaint. OBJECTIVE: The patient is actually eating better. He is also sleeping better. He has not been aggressive today. ASSESSMENT: Dementia. PLAN: Current medicines have been reviewed and will be maintained. Unfortunately, we were still not able to obtain urine. TRANSINT:[id number] Voice Confirmation ID: [id number] DOCUMENT ID: [id number] GRACE FATIMA MD at 1456 CC: [id number] DICTATION DATE: 06/09/19 1658 COMMUNITY AIDE: 06/09/19 2203 ADM IN [facility] [address] [place] [address]
[2019-06-10 20:00] VITALS: BP 107/38
--- NOTE | 2019-06-10 20:07 | NUR ---
PATIENT IS VERY CONFUSED, ONLY IS ORIENTED TO SELF, COMPLIANT WITH MEDS, REQUIRES TOTAL CARE, NO IMPROVEMENT. WILL FOLLOW POC
--- NOTE | 2019-06-11 08:54 | NUR ---
The patient is awake and ready to get up. Cleansed coccyx wound, apllied wet dressing to open wound with 4x4's then applied a mepilex. Dressed the patient in scrubs and assisted him to the gerichair for breakfast.
--- NOTE | 2019-06-11 08:54 | NUR ---
PT UP IN RECLINER CHAIR AT THIS TIME. PT IS ALERT TO SELF ONLY. CONFUSED. REDIRECT AND REORIENT NEEDED. BANDAGES CHANGED PER NURSES. PT TOLERATED WELL. PT ON OVERLAY MATTRESS, EGG CRATE IN CHAIR WITH AN ALARM IN PLACE. PT IS NOT HYPERVERBAL AT THIS TIME. WILL CONT PLAN OF CARE.
[2019-06-11 09:08] VITALS: BP 117/64
[2019-06-11 20:30] VITALS: BP 117/60
--- NOTE | 2019-06-11 21:23 | NUR ---
B.) PT IS ALERT AND ORIENTED TO SELF AND AT TIMES SITUATION. HE IS CALM AND COOPERATIVE WITH STAFF. HE IS PLEASANT AND SOCIALIZING WITH PEERS. HE IS ABLE TO AMBULATE WITHOUT ASSIST. I.) PROVIDED PM MEDICATIONS PRESCRIBED. REDIRECT OFTEN. R.) COMPLIANT WITH ALL MEDICATIONS. EASY TO REDIRECT. P.) WILL CONTINUE TO MONITOR.
--- NOTE | 2019-06-12 01:24 | NUR ---
B.) PT IS ALERT AND ORIENTED TO SELF ONLY. HE IS CALM AND COOPERATIVE WITH STAFF. HE YELLS OUT OCCASIONALLY. HE IS RECEIVED IN HIS ROOM. I.) PROVIDED PM MEDICATIONS PRESCRIBED. REDIRECT OFTEN. DRESSING CHANGE PERFORMED PER ORDERS. R.) COMPLIANT WITH ALL MEDICATIONS. DIFFICULT TO REDIRECT. PT TOLERATED DRESSING CHANGE WELL. P.) WILL CONTINUE TO MONITOR.
--- NOTE | 2019-06-12 13:53 | PN ---
PATIENT:ADAIR CM MEDICAL RECORD: [id number] LOCATION:[facility] ADMISSION DATE: 06/01/19 PROGRESS NOTE DATE OF SERVICE: 06/11/2019 SUBJECTIVE: The patient's case was discussed with staff. Staff states that he still does some yelling and some cursing, but has decreased. OBJECTIVE: The patient slept well last night, ate better for lunch today. His general appearance is mildly disheveled. He is alert to person, disoriented to person, place, time and situation. His speech is slow, soft, low tone, low volume. His associations are loose. His eye contact is fair. His judgment and insight is impaired. His thought and concentration is tangential. His affect is flat and narrow in range. His anxiety is mild. His memory is poor for both recent and remote events. The patient does not appear to be attending to visual, auditory hallucinations. The patient does appear to be tolerating the increased dose of Klonopin. ASSESSMENT: No change in diagnosis. PLAN: Continue to monitor his tolerance to medications and also his mood and his behaviors and to keep him safe and prepare him for discharge. Dictated By: Evie Santos APN I have interviewed/examined the above patient and agree with these documented findings. TRANSINT:[id number] Voice Confirmation ID: [id number] DOCUMENT ID: [id number] GRACE FATIMA MD at 1658 at 1353 CC: [id number] DICTATION DATE: 06/11/19 1646 DUMPMAN: 06/12/19 0025 ADM IN [place] [id number] [place] [address]
[2019-06-12 14:19] LABS: BASOPHILS 0 % (0-2); EOSINOPHILS 0 % (0-7); HEMATOCRIT 27.4 % (42.0-54.0); HEMOGLOBIN 8.3 g/dL (13.5-17.5); IMMATURE GRANULOCYTES 0.3 % (0-5); LYMPHOCYTES 4.4 % (15-50); MCH 27.4 pg (26.0-34.0); MCHC 30.3 g/dL (31.0-37.0); MCV 90.4 fL (80.0-100.0); MEAN PLATELET VOLUME 9.3 fL (7.4-10.4); MONOCYTES 5.6 % (2-11); NEUTROPHILS 89.7 % (40-80); RBC 3.03 10x6/uL (4.20-6.10); RDW 16.1 % (11.5-14.5); WBC 13.5 10x3/uL (4.8-10.8)
[2019-06-12 14:20] LABS: PLATELET COUNT 248 10x3/uL (130-400)
[2019-06-12 14:22] LABS: ALBUMIN 2.2 g/dL (3.4-5.0); ANION GAP 16.2 mmol/L (8-16); BILIRUBIN - TOTAL 0.27 mg/dL (0.2-1.3); CALCIUM 9.1 mg/dL (8.5-10.1); CARBON DIOXIDE 23.5 mmol/L (21.0-32.0); CREATININE - SERUM 1.2 mg/dL (0.6-1.3); POTASSIUM - SERUM 3.7 mmol/L (3.5-5.1); PROTEIN - SERUM 6.7 g/dL (6.4-8.2)
--- NOTE | 2019-06-12 17:24 | NUR ---
The patient is not feeling well, he is lethargic. bp is 109/52. Spoke to him and at first he did not respond. Soft chest rub provided and he started talking. Asked him how he is doing and said "I don't feel good today." He is in the bed and staff are turning him every two hours and offering him fluids. He is not eating, but he is drinking. He has not shown any aggression or made any inappropriate comments today. Continue POC.
--- NOTE | 2019-06-12 19:36 | NUR ---
RECEIVED IN DAYROOM. RESTING QUIETLY IN A BED. CALM AND COOPERATIVE WITH CARE AND ASSESSMENT. NO SEXUALLY INAPPROPRIATE BEHAVIOR. NO STATEMENTS OF SELF HARM. REDIRECT AND REORIENT NEEDED. CONTINUES TO REST QUIETLY. CONTINUE PLAN OF CARE
--- NOTE | 2019-06-12 19:57 | NUR ---
RECEIVED IN BEDROOM. RESTING QUIETLY IN IN HIS BED. CALM AND COOPERATIVE WITH CARE AND ASSESSMENT. NO SIGNS OF SEXUALLY INAPPROPRIATE BEHAVIOR. NO STATEMENTS OF SELF HARM. REDIRECT AND REORIENT NEEDED. ENCOURAGE TO EXPRESS NEEDS. CONTINUES TO LAY QUIETLY IN BED. CONTINUE PLAN OF CARE
[2019-06-12 20:29] VITALS: BP 108/55
--- NOTE | 2019-06-13 09:43 | NUR ---
PATIENT SPIT HIS AM MEDICATIONS OUT
[2019-06-13 10:16] VITALS: BP 104/49
--- NOTE | 2019-06-13 11:18 | NUR ---
RECEIVED IN DAYROOM. RESTING WITH EYES CLOSED. RESPONDS TO VOICE. CALM AND COOPERATIVE WITH CARE AND ASSESSMENT. NO BEHAVIORS. REDIRECT AND REORIENT NEEDED. CONTINUES TO REST WITH EYES CLOSED AT THIS TIME. CONTINUE PLAN OF CARE.
--- NOTE | 2019-06-13 16:58 | PN ---
PATIENT:ADAIR CM MEDICAL RECORD: [id number] LOCATION:[facility] ADMISSION DATE: 06/01/19 PROGRESS NOTE DATE OF SERVICE: 06/10/2019 SUBJECTIVE: The patient's case was discussed with staff. He has no new complaints. OBJECTIVE: The patient is not sleeping well, although he is receiving medications that should improve that. He is eating adequately. ASSESSMENT: Dementia. PLAN: The patient's Klonopin is going to be increased slightly secondary to some agitation. He will be monitored for clinical changes associated with its use. TRANSINT:[id number] Voice Confirmation ID: [id number] DOCUMENT ID: [id number] GRACE FATIMA MD at 1658 CC: [id number] DICTATION DATE: 06/10/19 1507 SHOE SINGER: 06/10/19 1748 ADM IN [place] [id number] [place] [address]
--- NOTE | 2019-06-13 16:58 | PN ---
PATIENT:ADAIR CM MEDICAL RECORD: [id number] LOCATION:[facility] ADMISSION DATE: 06/01/19 PROGRESS NOTE DATE OF SERVICE: 06/12/2019 SUBJECTIVE: The patient's case was discussed with staff. The patient is reclining in bed. He is fairly quiet. Medical has placed some orders for him as he has medically decompensated. OBJECTIVE: The patient slept fair last night. He did eat some today, has not drank a lot of liquids, was compliant with his medications, but has some terrible diarrhea. According to staff, he has not been yelling out much today, more solemn. Alert, but disoriented to person, place, time and situation, and his affect is flattened in range. ASSESSMENT: There is no change in diagnosis. PLAN: We will continue to monitor for his medical stability and his tolerance to medications, his mood and his behaviors and to keep him safe and prepare him for discharge. Dictated By: Evie Santos APN I have interviewed/examined the above patient and agree with these documented findings. TRANSINT:[id number] Voice Confirmation ID: [id number] DOCUMENT ID: [id number] GRACE FATIMA MD at 1658 at 1717 CC: [id number] DICTATION DATE: 06/12/19 1357 AIRCRAFT LOAD CONTROLLER: 06/12/192012 ADM IN [facility] [address] [place] [address]
--- NOTE | 2019-06-13 19:14 | NUR ---
RECEIVED IN ROOM 1136. RESTING IN BED WITH EYES CLOSED. TRANSFERE TO HIS BEDROOM. CALM AND COOPERATIVE WITH CARE AND ASSESSMENT. NO SIGNS OF SEXUALLY INAPPROPRIATE BEHAVIOR. NO STATEMENTS OF SELF HARM MADE. REDIRECT AND REORIENT NEEDED, RESTING IN BED EYES CLOSED AT THIS TIME. CONTINUE PLAN OF CARE
--- NOTE | 2019-06-14 00:12 | NUR ---
COMBATIVE WITH CARE. YELLING OUT.
--- NOTE | 2019-06-14 00:32 | NUR ---
INCREASING ANXIETY. VERY CONFUSED. YELLING OUT. PRN ATIVAN 0.5 MG IM GIVEN FOR ANXIETY. CONTINUE TO MONITOR FOR SAFETY.
--- NOTE | 2019-06-14 02:00 | NUR ---
CONTINUES TO YELL OUT AT TIMES.
--- NOTE | 2019-06-14 06:56 | NUR ---
NO TX GIVEN BEING CLEANED UP AND WOUND CARE DONE
[2019-06-14 08:29] VITALS: BP 103/60
--- NOTE | 2019-06-14 08:30 | NUR ---
RECEIVED IN PATIENT ROOM. RESTING IN BED WITH EYES OPEN. CALM AND COOPERATIVE WITH ASSESSMENT. BECAME AGGRESSIVE AND AGITATED WITH CARE. REDIRECT AND REORIENT NEEDED. EATING BREAKFAST AT THIS TIME. CONTINUE PLAN OF CARE.
--- NOTE | 2019-06-14 14:48 | PN ---
PATIENT:ADAIR CM MEDICAL RECORD: [id number] LOCATION:[facility] ADMISSION DATE: 06/01/19 PROGRESS NOTE DATE OF SERVICE: 06/13/2019 SUBJECTIVE: The patient's case was discussed with staff. The patient is reclining in bed. He has been fairly quiet. Medical is following him for his medical care. The patient has at times had some aggressive behavior while giving care. OBJECTIVE: The patient slept fairly well overnight. He has not been eating well. His general appearance is mildly disheveled. His orientation is disoriented to place, time and situation. Does respond to voice. His speech is impaired articulation. He has loose association. His eye contact is poor. His mood is depressed. His affect is flat, narrow in range. No tremors noted. Does not appear to be attending to any visual or auditory hallucinations. ASSESSMENT: There is no change in his diagnosis. PLAN: We will continue to monitor him for his medical stability and his tolerance to medications, his behaviors, and to keep him safe and prepare him for discharge. TRANSINT:[id number] Voice Confirmation ID: [id number] DOCUMENT ID: [id number] GRACE FATIMA MD at 1448 CC: [id number] DICTATION DATE: 06/13/19 1506 CHILDRENS CLUB ATTENDANT: 06/13/19 2255 ADM IN [id number] [place] [address]
--- NOTE | 2019-06-14 15:11 | NUR ---
Nutrition Follow-up: Received nutrition consult. Patient initial Nutritional Assessment date 06/02/19. 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 Patient continues to be followed by MEMBERSHIP ADMINISTRATOR. Per most recent MEMBERSHIP ADMINISTRATOR notes patient was reported to be eating better on puree diet so diet was changed by nursing staff to puree. Patient tolerates mech soft and puree per MEMBERSHIP ADMINISTRATOR. Diet: Regular Puree with nectar thickened liquids PO intake: <10% average x last 6 meals recorded Last BM: 06/13/19 x 2. Last WT: 123.6# (06/06/19); Admit WT: 127.8# (06/02/19) Meds noted: megace. Noted weight loss of -4.2# since admit. Patient with inconsistent PO intake so far during hospital stay, currently inadequate energy and protein intake. May consider advanced nutrition support. If EN needed, recommend goal of: Jevity 1.5 @ 60mL/hr + 35mL/hr H2O. This would provide: 2160 calories (39kcal/kg), 92gms PRO (1.6gms/kg) and 1935mL free water and would meet estimated needs. PO diet per MEMBERSHIP ADMINISTRATOR recommendations. Continue oral nutrition supplements while on PO diet. Continue appetite stimulant while on PO diet. Encourage PO intake. RD following.
--- NOTE | 2019-06-14 19:24 | NUR ---
RECEIVED IN HIS BEDROOM. RESTING IN BED WITH EYES OPEN. YELLING OUT AT TIMES. CALM AND COOPERATIVE WITH CARE AND ASSESSMENT. NO SEXUALLY INAPPROPRIATE BEHAVIORS. NO STATEMENTS OF SELF HARM. REDIRECT AND REORIENT NEEDED. RESTING IN BED AT THIS TIME. CONTINUE PLAN OF CARE
[2019-06-14 20:00] VITALS: BP 117/48
--- NOTE | 2019-06-14 21:42 | NUR ---
PATIENT YELLING OUT ANXIOUS, CURSING THE STAFF, COMBATIVE, NOT REDIRECTING, GAVE ATIVAN 0.5 MG IM AND HALDOL 2 MG IM.
--- NOTE | 2019-06-14 23:00 | NUR ---
RESTING QUIETLY IN BED WITH EYES CLOSED.
--- NOTE | 2019-06-15 00:39 | NUR ---
YELLING OUT FROM BED. INCREASING ANXIETY.
--- NOTE | 2019-06-15 08:30 | NUR ---
RECEIVED IN PATIENT ROOM. RESTING IN BED WITH EYES OPEN. CALM AND COOPERATIVE WITH CARE AND ASSESSMENT. RESTLESS AT TIMES. NO BEHAVIORS. REDIRECT AND REORIENT NEEDED. EATING BREAKFAST AT THIS TIME. CONTINUE PLAN OF CARE.
[2019-06-15 08:33] VITALS: BP 107/56
--- NOTE | 2019-06-15 10:37 | NUR ---
SW SPOKE WITH DTR YESTERDAY ABOUT PT'S CONDITION AND THE RECOMMENDATION FOR HOSPICE CARE. DTR CALLED BACK TODAY AND STATED PT'S SONS WANT TO CONTACT SW TO DISCUSS HOSPICE FURTHER AND CHANGING THE STATUS FROM FULL CODE TO DNR. PT'S SONS WERE UNAVAILABLE THIS MORNING AND PT'S DTR REQUESTED A [id number] PHONE CONFERENCE.
--- NOTE | 2019-06-15 15:04 | PN ---
PATIENT:ADAIR CM MEDICAL RECORD: [id number] LOCATION:[facility] ADMISSION DATE: 06/01/19 PROGRESS NOTE DATE OF SERVICE: 06/14/2019 SUBJECTIVE: The patient's case was discussed with staff. He has no new complaint. OBJECTIVE: The patient is not sleeping very well, but he is sleeping in and out through the day. He is not eating very well either, but he is receiving Megace to assist with his appetite. He has been yelling combative with care and difficult to redirect. ASSESSMENT: Dementia. PLAN: The patient is advanced in his dementia. He is not having any suicidal ideations or sexually inappropriate behavior. Nevertheless, he is certainly difficult to manage. He is dangerously underweight and is still not eating adequately. A lack of oral intake is also making it difficult for his stage IV decubitus ulcer on his bottom that was present when he was admitted to the hospital to heal. I think his prognosis is exceedingly poor and I will discuss referring him to hospice with the treatment team before presenting it to his family. TRANSINT:[id number] Voice Confirmation ID: [id number] DOCUMENT ID: [id number] GRACE FATIMA MD at 1504 CC: [id number] DICTATION DATE: 06/14/19 1655 MOTOR GRADER OPERATOR: 06/14/19 2336 ADM IN [place] [id number] [place] [id number]
[2019-06-15] MEDS ORDERED: ROCEPHIN 1 GM/D51 G1 IM (15:17)
[2019-06-15] MEDS ORDERED: ZITHROMAX250 MG PO (15:17)
[2019-06-15] MEDS ORDERED: NAMENDA5 MG PO (15:18)
[2019-06-15] MEDS ORDERED: IPRAT-ALBUT 0.5-3 ML UPD (15:18)
[2019-06-15] MEDS ORDERED: GEODON20 MG PO (15:18)
[2019-06-15] MEDS ORDERED: KLONOPIN0.5 MG PO (15:19)
[2019-06-15] MEDS ORDERED: FLORAJEN3 CAPS460 MG PO (15:19)
[2019-06-15] MEDS ORDERED: Megace ES [CHEMO] PO (15:20)
[2019-06-15] MEDS ORDERED: Xylocaine-MPF 1% IM (15:20)
--- NOTE | 2019-06-15 15:46 | NUR ---
CARLOS ALBERTO SPOKE WITH PT'S SON CARINE AND DTR MARISA TO DISCUSS PT'S STATUS AND DECLINE. CARINE AND MARISA AGREED TO HAVE A HOSPICE CONSULT FOR INPATIENT HOSPICE AND MAKE PT A DNR CODE STATUS. [facility] IS NOT ALLOWING PT'S FROM HOSPITALS TO ENTER INTO IPU AND THEY ARE NOT SEEING PT'S IN NURSING HOMES FROM HOSPITALS UNTIL AFTER 15 DAYS OF ADMISSION. DUE TO THE DECLINE OF PT PT'S FAMILY AGREED FOR [facility] TO COME AND EVALUATE. [facility] CAN COME AN EVALUATE IN THE MORNING TO DETERMINE WHAT LEVEL OF CARE IS NEEDED. MARISA AND CARINE VOICED UNDERSTANDING OF DISCUSSION.
--- NOTE | 2019-06-15 19:22 | NUR ---
RECEIVED IN BEDROOM. RESTING WITH EYES OPEN. CALM AND COOPERATIVE WITH CARE AND ASSESSMENT. NO SEXUALLY INAPPROPRIATE BEHAVIOR. NO STATEMENTS OF SELF HARM. REDIRECT AND REORIENT NEEDED. CONTINUES TO REST EYES CLOSED. CONTINUE PLAN OF CARE
[2019-06-15 20:00] VITALS: BP 112/57
--- NOTE | 2019-06-16 08:20 | NUR ---
RECEIVED IN PATIENT ROOM. RESTING IN BED WITH EYES CLOSED. RESPONDS TO VOICE. CALM AND COOPERATIVE WITH CARE AND ASSESSMENT. RESTLESS AT TIMES. REDIRECT AND REORIENT NEEDED. CONTINUES TO REST IN BED WITH EYES CLOSED AT THIS TIME. CONTINUE PLAN OF CARE.
[2019-06-16 10:21] VITALS: BP 116/62
--- NOTE | 2019-06-16 13:50 | PN ---
PATIENT:ADAIR CM MEDICAL RECORD: [id number] LOCATION:[facility] ADMISSION DATE: 06/01/19 PROGRESS NOTE DATE OF SERVICE: 06/15/2019 SUBJECTIVE: The patient's case was discussed with staff. He has no new complaint. OBJECTIVE: The patient is in good behavioral control, but severely impaired cognitively. He is actually eating reasonably well, although he is having some trouble processing the food and he is still underweight. ASSESSMENT: Dementia. PLAN: The patient's prognosis is unfortunately poor. He has decubitus ulcers that are not healing adequately. He is oxygen dependent. He has almost no insight about his situation. He is being referred to hospice for comfort care. TRANSINT:[id number] Voice Confirmation ID: [id number] DOCUMENT ID: [id number] GRACE FATIMA MD at 1350 CC: [id number] DICTATION DATE: 06/15/19 1516 NURSING MANAGER: 06/15/19 1736 ADM IN [place] [id number] [place] [id number]
--- NOTE | 2019-06-16 15:41 | NUR ---
CARLOS ALBERTO SPOKE WITH PT'S DTR, MARISA, AND SON CARINE TO DISCUSS PT'S TRANSFER TODAY TO INPATIENT HOSPICE. CARINE STATED HE IS WAITING ON PPW TO SIGN AND THEN CARLOS ALBERTO EXPLAINED WHAT WILL HAPPEN NEXT WITH PT BEING MOVED UPSTAIRS.
--- NOTE | 2019-06-16 21:25 | NUR ---
PATIENT DISCHARGED TO [facility] IN [facility]SE ON MED SURG. PAPERWORK FAXED TO [facility]. HARD COPY GIVEN TO [facility]. REPORT GIVEN TO ISELA FLOWERS.
--- NOTE | 2019-06-17 09:01 | PN ---
PATIENT:ADAIR CM MEDICAL RECORD: [id number] LOCATION:[facility] ADMISSION DATE: 06/01/19 PROGRESS NOTE DATE OF SERVICE: 06/16/2019 SUBJECTIVE: The patient's case was discussed with staff. He has no new complaint. OBJECTIVE: The patient is only oriented to person and is minimally verbal. He is declining medically and after consulting with Dr. Pinzon who has also consulted with the family, he is going to be transferred to hospice on an inpatient basis today. His prognosis is unfortunately exceedingly poor and my understanding of the situation is that he is not likely to survive very long given his current level of deterioration. TRANSINT:[id number] Voice Confirmation ID: [id number] DOCUMENT ID: [id number] GRACE FATIMA MD at 0901 CC: [id number] DICTATION DATE: 06/16/19 1457 CONFECTIONERY MAKER: 06/16/19 2342 DIS IN 06/16/19 [place] [id number] [place] [address]
== END 2019-06-16 21:25 | disposition hospice, inpatient (51) | DRG 56 ==
LOC: D.PSYCH 20:56
PROVIDERS: Family Medicine; ADMIT Psychiatry & Neurology Psychiatry; ATTEND Psychiatry & Neurology Psychiatry
DX: G30.9 Alzheimer's disease, unspecified (principal); L89.154 Pressure ulcer of sacral region, stage 4; L89.203 Pressure ulcer of unspecified hip, stage 3; E43 Unspecified severe protein-calorie malnutrition; F02.81 Dementia in other diseases classified elsewhere, unspecified severity, with behavioral disturbance; I25.10 Atherosclerotic heart disease of native coronary artery without angina pectoris; F41.8 Other specified anxiety disorders; E78.5 Hyperlipidemia, unspecified; K21.9 Gastro-esophageal reflux disease without esophagitis; I10 Essential (primary) hypertension; R26.9 Unspecified abnormalities of gait and mobility; M19.90 Unspecified osteoarthritis, unspecified site; G89.29 Other chronic pain; D64.9 Anemia, unspecified; E53.8 Deficiency of other specified B group vitamins; K59.00 Constipation, unspecified; R19.7 Diarrhea, unspecified; R13.11 Dysphagia, oral phase

== ENCOUNTER 2019-06-16 20:54 | Inpatient (IN) | payer OTHER ==
[~2019-06-16] VITALS: Ht 180.3 cm; Wt 55.9 kg
[~2019-06-16 20:54] MED LIST changes: +ACETAMINOPHEN325 MG PO; +ASCORBIC ACID500 MG PO; +BAYER CHEWABLE81 MG PO; +FAMOTIDINE10 MG PO; +FERROUS SULFAT325 MG PO; +FLORANEX / LACT1 TAB PO; +FOLIC ACID1 MG PO; +IMODIUM2 MG PO; +IPRAT-ALBUT 0.5-3 ML UPD; +MELATONIN 3 MG1 TAB PO; +MIDODRINE HCL10 MG PO; +MULTI-DAY VITAM1 TAB PO; +Megace ES [CHEMO] PO; +NAMENDA10 MG PO; +NORCO-7.51 TAB PO; +POTASSIUM CHLOR8 ME1 PO; +ROCEPHIN 1 GM/D51 G1 IM; +SENNA LAXATIVE8.6 MG PO; +VITAMIN B-12500 MCG PO; +VITAMIN D10000 UNI1 PO; +Xylocaine-MPF 1% IM; +ZITHROMAX250 MG PO; +ZOFRAN8 MG PO
--- NOTE | 2019-06-16 21:25 | NUR ---
RECEIVED PT FROM INTERMEDIATE VIA BED FOR INPT HOSPICE PER [facility]. EYES CLOSED. RESP SHALLOW. NONLABORED. UNABLE TO ANSWER QUESTIONS. YAQUELIN ALARM ON FOR PT SAFETY. 1ST STEP OVERLAY MATTRESS IN USE. BILAT HEEL PROTECTORS IN USE. BBS RHONCHI WITH OCC NONPROD LOOSE COUGH. MOUTH BREATHING. O2 @ 2L/NC. DECUBS NOTED TO COCCYX AND RT HIP WITH DRSGS INTACT. PENIS IS SPLIT FROM HX OF CHRONIC CATH. INCONT AT TIMES. SR ELEVATED X2. CL IN REACH. NO IV ACCESS.
--- NOTE | 2019-06-16 23:30 | NUR ---
SPOKE WITH OTM MERRILL RN WITH [facility] WHO GAVE VERBAL ORDER PER DR. ESPANA FOR DNR. WITNESSED BY THIS INFORMATION TECHNOLOGY PROJECT MANAGER AND ANGÉLICA MCNAIR.
[2019-06-17 01:03] VITALS: BP 105/57; Ht 180.3 cm; Wt 55.9 kg
--- NOTE | 2019-06-17 03:11 | NUR ---
LYING IN BED. MOUTH BREATHING. O2 IN USE. RESP SHALLOW. NO DISTRESS. CL IN REACH.
--- NOTE | 2019-06-17 04:45 | NUR ---
INCONT OF URINE AT THIS TIME. YELLING AT STAFF WHILE CHANGING AND CLEANING HIM. TOLD INSURANCE REPRESENTATIVE TO "GO TO HELL" AND HIT HIS ARM A FEW TIMES.
--- NOTE | 2019-06-17 05:55 | NUR ---
PT YELLING OUT FOR SOMEONE NOT PRESENT. ASKS STAFF WHO SHE IS THEN SAYS "YOU STOLE MY VIAGRA." ATTEMPTED TO REDIRECT. CL IN REACH. YAQUELIN ALARM ON.
--- NOTE | 2019-06-17 07:15 | NUR ---
RESTING IN BED WITH EYES CLOSED. CURRENTLY RCVING 2L VIA NC. NO CURRENT S/S OF DISTRESS AT THIS TIME, WILL CONT TO MONITOR.
--- NOTE | 2019-06-17 08:23 | NUR ---
PT WAS ADMITTED WITH A STAGE 4 PRESSURE INJURY ON HIS COCCYX AND A STAGE 3 PRESSURE INJURY ON RIGHT HIP. COCCYX: 7CM X 5CM X 1CM X 4CM FROM 12-12 OCLOCK. WOUND BED IS RED AND EDGES ARE ROLLED. THERE IS A MODERATE SEROUS DRAINAGE. RIGHT HIP: 2CM X 2CM WITH WOUND BED BEING COVERED WITH YELLOW SLOUGH. THERE IS A MODERATE SEROUS DRAINAGE. RECOMMENDED: COCCYX: WET TO DRY DRESSINGS USING DAKINS SOLUTION MOISTENED KERLIX AND LOOSELY PACKING ENTIRE WOUND BED. RIGHT HIP: PLUROGEL APPLIED TO WOUND BED, COVERED WITH ADAPTIC AND BORDER GAUZE. RECOMMEND CALMOSEPTINE CREAM FOR TISHA AREA FOR REDNESS/IRRITATION RELATED TO INCONTINENCE PT IS ON AN AIR OVERLAY MATTRESS AND IS BEING TURNED/REPOSITIONED Q 2 HOURS. WOUND CARE CONTINUES TO MONITOR.
[2019-06-17 09:06] VITALS: BP 133/80
--- NOTE | 2019-06-17 14:05 | NUR ---
DRESSING TO COCYX AND LEFT HIP CHANGED.
--- NOTE | 2019-06-17 20:00 | NUR ---
PT LYING IN BED AWAKE AND ALERT. NO SIGNS OR SYMPTOMS OF DISTRESS NOTED. RESPIRATIONS EVEN AND UNLABORED. CALL LIGHT WITH IN REACH AND ANGELIKA IS IN LOWEST POSITION . WILL CONTINUE TO MONITOR
--- NOTE | 2019-06-18 02:26 | NUR ---
PT LYING IN BED AWAKE AND ALERT. PT HAS SOME CONFUSION. WHEN ASKED PT STATED THAT HE WAS HURTING. PRN MORPHIN AND ATIVAN GIVEN FOR 7/10 PAIN LEVEL. BATH GIVEN AND BED LINENS CHANGED. DRESSING TO COCCYX CHANGED. PT REPOSITIONED. PT TOLERATED WELL. CALL LIGHT WITH IN REACH AND BED ALARM IS ON AND ACTIVE. WILL CONTINUE TO MONITOR
--- NOTE | 2019-06-18 04:22 | NUR ---
I have reviewed this patient and I concur with the Shift Assessment completed by the Licensed Practical Nurse today this shift.
--- NOTE | 2019-06-18 05:16 | NUR ---
I have reviewed this patient and I concur with the Shift Assessment completed by the Licensed Practical Nurse today this shift.
--- NOTE | 2019-06-18 06:04 | NUR ---
PRN PAIN MEDICATION AND ATIVAN GIVEN FOR PAIN AND AGITAION. CALL LIGHT WITH IN REACH. REPOSITIONED FOR COMFORT. WILL CONTINUE TO MONITOR
--- NOTE | 2019-06-18 06:50 | NUR ---
RESTING IN BED WITH EYES CLOSED. RESPIRATIONS EVEN AND UNLABORED. NO S/S OF ACUTE DISTRESS NOTED. ON 2L O2, NC. DNR. ON ASPIRATION PRECAUTIONS. INCONTINENT OF B&B. ON 1ST STEP OVERLAY MATTRESS, HEEL PROTECTORS ON. GENERALIZED BRUISING TO BUE. STAGE 3 PRESSURE ULCER TO RIGHT HIP, DRESSING C/D/I. STAGE 4 PRESSURE ULCER TO COCCYX, DRESSING C/D/I. CALL LIGHT IN REACH. WILL CONTINUE TO MONITOR.
[2019-06-18 08:24] VITALS: BP 102/57
--- NOTE | 2019-06-18 08:48 | MORECARE ---
CASE MANAGEMENT DISCHARGE SUMMARY PATIENT: ADAIR CM UNIT: [id number] ADM DATE: 06/16/19 AGE: 84 : 36 SEX: M ROOM/BED: D.2234 AUTHOR: RHONDA CARLIN PHYSICIAN: REFERRING PHYSICIAN: JUAN ANTONIO ESPANA MD DATE OF SERVICE: 06/18/19 Discharge Plan Patient Name: ADAIR CM Facility: [facility]:[place] : 1935 Planned Disposition: Hospice Medical Facility Anticipated Discharge Date: Discharge Date: Expected LOS: Initial Reviewer: [email or web address] Initial Review Date: 06/18/2019 Generated: 06/18/19 9:48 am Comments DCP- Discharge Planning Updated by [email or web address]: Angela Moy on 06/18/19 7:[address] Patient Name: ADAIR CM Admission Status: Elective Accout number: [id number] Admission Date: 06-16-2019 : 1935 Admission Diagnosis: Attending: JUAN ANTONIO ESPANA Current LOS: 2 Anticipated DC Date: Planned Disposition: Hospice Medical Facility Primary Insurance: [employer] [facility] Discharge Planning Comments: Patient is admitted to [facility] Hosp[facility]. He lives at [facility], plan to return to [facility] on Hospice. Pipe Line Repairer: Angela Moy Patient Name: ADAIR CM Page [id number] at 0848 All edits/amendments must be made on the electronic document DICTATION DATE: 06/18/19 0848 PLANT CUSTODIAN: IVETH 06/18/19 0848 RPT#: [id number] DC DATE: STATUS: ADM IN [facility] [address] [place] [address] END OF REPORT
--- NOTE | 2019-06-18 09:33 | NUR ---
I have reviewed this patient and I concur with the Shift Assessment completed by the Licensed Practical Nurse today this shift.
--- NOTE | 2019-06-18 10:10 | MORECARE ---
CASE MANAGEMENT DISCHARGE SUMMARY PATIENT: ADAIR CM UNIT: [id number] ADM DATE: 06/16/19 AGE: 84 : 36 SEX: M ROOM/BED: D.2234 AUTHOR: RHONDA CARLIN PHYSICIAN: REFERRING PHYSICIAN: JUAN ANTONIO ESPANA MD DATE OF SERVICE: 06/18/19 Discharge Plan Patient Name: ADAIR CM Facility: [facility]:[place] : 1935 Planned Disposition: Hospice Medical Facility Anticipated Discharge Date: Discharge Date: Expected LOS: Initial Reviewer: [id number] Initial Review Date: 06/18/2019 Generated: 06/18/19 11:10 am Comments DCP- Discharge Planning Updated by [id number]: Angela Moy on 06/18/19 9:[address] Patient's daughter asked me if patient was returning to [facility] today on Hospice. I informed her that I would contact Hospice and find out if he was no longer meeting inpatient criteria for hospice. I called [facility] and left a message to let me know if he no longer meets inpatient criteria for hospice. CM will continue to follow and assist with discharge planning/needs. Renita - DTR - [phone] DCP- Discharge Planning Updated by [email or web address]: Angela Moy on 06/18/19 7:[address] Patient Name: ADAIR CM Admission Status: Elective Accout number: [id number] Admission Date: 06-16-2019 : 1935 Admission Diagnosis: Attending: JUAN ANTONIO ESPANA Current LOS: 2 Anticipated DC Date: Planned Disposition: Hospice Medical Facility Primary Insurance: [employer] [facility] Discharge Planning Comments: Patient is admitted to [facility] Hospice. He lives at [facility], plan to return to [facility] on Hospice. Teacher Theater Arts: Angela Moy Coverage Notice Reviewer: [id number] Roberto Moy Notice Issued Date-Time: 06/18/2019 10:03 Notice Type: Patient Choice Letter Notice Delivered To: Family Member Relationship to Patient: Daughter Advertising Sales Executive Name: Renita Forman Delivery Method: HAND - Hand Delivered Bonnie Days: Prior Verbal Notification: Recipient Understood Notice: Yes Recipient Signature: Yes Med Rec Note Co-signed by Attending: Coverage Notice Comment: CHARLENE for [place] [facility] Last DP export: 06/18/19 7:48 a Patient Name: ADAIR CM Page [phone] at 1010 All edits/amendments must be made on the electronic document DICTATION DATE: 06/18/[address] DES[address] ENGINEER: IVETH 06/18/19 1010 RPT#: [id number] DC DATE: STATUS: ADM IN [facility] [address] [place] [address] END OF REPORT
--- NOTE | 2019-06-18 11:49 | MORECARE ---
CASE MANAGEMENT DISCHARGE SUMMARY PATIENT: ADAIR CM UNIT: [id number] ADM DATE: 06/16/19 AGE: 84 : 36 SEX: M ROOM/BED: D.2234 AUTHOR: RHONDA CARLIN PHYSICIAN: REFERRING PHYSICIAN: JUAN ANTONIO ESPANA MD DATE OF SERVICE: 06/18/19 Discharge Plan Patient Name: ADAIR CM Facility: [facility]:[place] : 1935 Planned Disposition: Hospice Medical Facility Anticipated Discharge Date: Discharge Date: Expected LOS: Initial Reviewer: [id number] Initial Review Date: 06/18/2019 Generated: 06/18/19 12:49 pm Comments DCP- Discharge Planning Updated by [id number]: Angela Moy on 06/18/19 9:[address] Patient's daughter asked me if patient was returning to [facility] today on Hospice. I informed her that I would contact Hospice and find out if he was no longer meeting inpatient criteria for hospice. I called [facility] and left a message to let me know if he no longer meets inpatient criteria for hospice. CM will continue to follow and assist with discharge planning/needs. Renita DTR - [phone] DCP- Discharge Planning Updated by [email or web address]: Angela Moy on 06/18/19 7:[address] Patient Name: ADAIR CM Admission Status: Elective Accout number: [id number] Admission Date: 06-16-2019 : 1935 Admission Diagnosis: Attending: JUAN ANTONIO ESPANA Current LOS: 2 Anticipated DC Date: Planned Disposition: Hospice Medical Facility Primary Insurance: [employer] [facility] Discharge Planning Comments: Patient is admitted to [facility] Hospice. He lives at [facility], plan to return to [facility] on Hospice. River Driver: Angela Moy External Providers [facility] Next Contact Date: Service Request Date: Service Type: Resolution: Reviewer: Comments: Coverage Notice Reviewer: [id number] Roberto Moy Notice Issued Date-Time: 06/18/2019 10:03 Notice Type: Patient Choice Letter Notice Delivered To: Family Member Relationship to Patient: Daughter Air Reduction Equipment Operator Name: Renita Forman Delivery Method: HAND - Hand Delivered Bonnie Days: Prior Verbal Notification: Recipient Understood Notice: Yes Recipient Signature: Yes Med Rec Note Co-signed by Attending: Coverage Notice Comment: CHARLENE for [facility] Last DP export: 06/18/19 9:10 a Patient Name: ADAIR CM Page [phone] at 1149 All edits/amendments must be made on the electronic document DICTATION DATE: 06/18/19 1149 PAIL TESTER: IVETH 06/18/19 1149 RPT#: [id number] DC DATE: STATUS: ADM IN [facility] [address] [place] [address] END OF REPORT
--- NOTE | 2019-06-18 12:07 | MORECARE ---
CASE MANAGEMENT DISCHARGE SUMMARY PATIENT: ADAIR CM UNIT: [id number] ADM DATE: 06/16/19 AGE: 84 : 36 SEX: M ROOM/BED: D.2234 AUTHOR: RHONDA CARLIN PHYSICIAN: REFERRING PHYSICIAN: JUAN ANTONIO ESPANA MD DATE OF SERVICE: 06/18/19 Discharge Plan Patient Name: ADAIR CM Facility: [facility]:[place] : 1935 Planned Disposition: Hospice Medical Facility Anticipated Discharge Date: Discharge Date: Expected LOS: Initial Reviewer: [email or web address] Initial Review Date: 06/18/2019 Generated: 06/18/19 1:06 pm Comments DCP- Discharge Planning Updated by [email or web address]: Angelagregorio Moy on 06/18/19 10:[address] Patient Name: ADAIR CM Encounter No: [id number] : 1935 [facility] Anticipated DC Date: Planned Disposition: Hospice Medical Facility External Planned Provider: : DCP follow-up note: Patient and family in agreement with discharge plan. No changes to plan. I spoke with Tamy. They are going to set up ambulance transfer to return to [place] to a LT bed on hospice. Daughter is here and informed and agrees. Case management will follow and assist as needed. Angela Hesterjosue DCP- Discharge Planning Updated by [id number]: Angela Moy on 06/18/19 9:[address] Patient's daughter asked me if patient was returning to [facility] today on Hospice. I informed her that I would contact Hospice and find out if he was no longer meeting inpatient criteria for hospice. I called Sean Saleh and left a message to let me know if he no longer meets inpatient criteria for hospice. CM will continue to follow and assist with discharge planning/needs. [facility] - [phone] DCP- Discharge Planning Updated by [email or web address]: Angela Hesterjosue on 06/18/19 7:[address] Patient Name: ADAIR CM Admission Status: Elective Accout number: [id number] Admission Date: 06-16-2019 : 01-01-1936 Admission Diagnosis: Attending: JUAN ANTONIO ESPANA Current LOS: 2 Anticipated DC Date: Planned Disposition: Hospice Medical Facility Primary Insurance: [facility] Discharge Planning Comments: Patient is admitted to [facility] Hospice. He lives at [facility], plan to return to [facility] on Hospice. Theater Company Producer: Angela Moy Coverage Notice Reviewer: [id number] Roberto Moy Notice Issued Date-Time: 06/18/2019 10:03 Notice Type: Patient Choice Letter Notice Delivered To: Family Member Relationship to Patient: Daughter Mend Worker Name: Renita Forman Delivery Method: HAND - Hand Delivered Bonnie Days: Prior Verbal Notification: Recipient Understood Notice: Yes Recipient Signature: Yes Med Rec Note Co-signed by Attending: Coverage Notice Comment: CHARLENE for [facility] and [facility] Last DP export: 06/18/19 10:49 a Patient Name: ADAIR CM Page [id number] at 1207 All edits/amendments must be made on the electronic document DICTATION DATE: 06/18/19 1206 BACK STRIP MACHINE OPERATOR: IVETH 06/18/19 1206 RPT#: [id number] DC DATE: STATUS: ADM IN [facility] [address] [place] [address] END OF REPORT
--- NOTE | 2019-06-18 13:47 | NUR ---
REPORT CALLED TO MARYBEL LINDSAY AT [facility]. AWAITING AMBULANCE [facility].
--- NOTE | 2019-06-18 14:30 | NUR ---
[facility] HERE FOR TRANSPORT. STABLE AT TIME OF DISCHARGE
--- NOTE | 2019-06-19 12:43 | MORECARE ---
CASE MANAGEMENT DISCHARGE SUMMARY PATIENT: ADAIR CM UNIT: [id number] ADM DATE: 06/16/19 AGE: 84 : 36 SEX: M ROOM/BED: D.2234 AUTHOR: RAEGANDOC PHYSICIAN: REFERRING PHYSICIAN: JUAN ANTONIO ESPANA MD DATE OF SERVICE: 06/19/19 Discharge Plan Patient Name: ADAIR CM Facility: [facility]:[place] : 1935 Planned Disposition: Hospice Medical Facility Anticipated Discharge Date: Discharge Date: 06/18/2019 Expected LOS: Initial Reviewer: [email or web address] Initial Review Date: 06/18/2019 Generated: 06/19/19 1:42 pm Comments DCP- Discharge Planning Updated by [email or web address]: Angelagregorio Moy on 06/18/19 10:[address] Patient Name: ADAIR MC Encounter No: [id number] : 1935 Primary Insurance: [facility] Anticipated DC Date: Planned Disposition: Hospice Medical Facility External Planned Provider: : DCP follow-up note: Patient and family in agreement with discharge plan. No changes to plan. I spoke with Tamy. They are going to set up ambulance transfer to return to [place] to a LT bed on hospice. Daughter is here and informed and agrees. Case management will follow and assist as needed. Angela Moy DCP- Discharge Planning Updated by [email or web address]: Angela Moy on 06/18/19 9:[address] Patient's daughter asked me if patient was returning to [facility] today on Hospice. I informed her that I would contact Hospice and find out if he was no longer meeting inpatient criteria for hospice. I called Sean Saleh and left a message to let me know if he no longer meets inpatient criteria for hospice. CM will continue to follow and assist with discharge planning/needs. Renita [facility] - [phone] DCP- Discharge Planning Updated by [email or web address]: Angela Hesterjosue on 06/18/19 7:[address] Patient Name: ADAIR CM Admission Status: Elective Accout number: [id number] Admission Date: 06-16-2019 : 1935 Admission Diagnosis: Attending: JUAN ANTONIO ESPANA Current LOS: 2 Anticipated DC Date: Planned Disposition: Hospice Medical Facility Primary Insurance: [facility] Discharge Planning Comments: Patient is admitted to [facility] Hospice. He lives at [facility], plan to return to [facility] on Hospice. Dispenser Operator: Angela Moy Coverage Notice Reviewer: [id number] - Angela Moy Notice Issued Date-Time: 06/18/2019 10:03 Notice Type: Patient Choice Letter Notice Delivered To: Family Member Relationship to Patient: Daughter Ged Tutor Name: Renita Forman Delivery Method: HAND - Hand Delivered Bonnie Days: Prior Verbal Notification: Recipient Understood Notice: Yes Recipient Signature: Yes Med Rec Note Co-signed by Attending: Coverage Notice Comment: CHARLENE for [facility] Last DP export: 06/18/19 11:07 a Patient Name: ADAIR CM Page [id number] at 1243 All edits/amendments must be made on the electronic document DICTATION DATE: 06/19/19 1242 GLASS NOVELTY MAKER: IVETH 06/19/19 1242 RPT#: [id number] DC DATE:06/18/19 STATUS: DIS IN [facility] [address] [place] [address] END OF REPORT
== END 2019-06-18 17:36 | disposition home health service (06) | DRG 951 ==
LOC: D.MS 20:54
PROVIDERS: ADMIT Legal Medicine; ATTEND Legal Medicine
DX: Z51.5 Encounter for palliative care (principal)